=== PATIENT | male | born 1955 | race Caucasian/White ===

== ENCOUNTER 2018-12-27 20:02 | Inpatient (IN) | payer MEDICAID, OTHER ==
[~2018-12-27] VITALS: Ht 182.9 cm; Wt 77.1 kg
[~2018-12-27 20:02] MED LIST: ALBU0.63 NEB; ASPI325T17 PO; DIAZ2TAB PO; ESOM20CA PO; NAPR220T77 PO; OLAN10TA3 PO; OMEP20TA62 PO
--- NOTE | 2018-12-27 20:13 | NUR ---
PT TO ED WITH SALVATORE AFTER REFERRAL FROM [facility] FOR ABNORMAL LIVER PANEL. PT CANNOT REMEMBER WHEN PANEL WAS DRAWN. NEEDS MEDICAL CLEARANCE PRIOR TO RETURNING TO HALF-WAY. CONNECTED TO MONITOR. VSS. AWAITING EDMD ASSESSMETN.
[2018-12-27 20:50] LABS: BASOPHILS # (AUTO) 0.08 x10^3/uL (0-0.1); BASOPHILS % (AUTO) 1 % (0-1); EOSINOPHILS % (AUTO) 0 % (1-7); LYMPHOCYTES # (AUTO) 1.35 x10^3/uL (1-3.4); LYMPHOCYTES % (AUTO) 17 % (22-44); MD NO; MEAN CORPUSCULAR HEMOGLOBIN 34.5 pg (27.5-34.5); MEAN CORPUSCULAR HGB CONC 34.4 g/dL (33.2-36.2); MEAN CORPUSCULAR VOLUME 100.4 fL (81-97); MEAN PLATELET VOLUME 9.3 fL (7.4-10.4); MONOCYTES % (AUTO) 6 % (2-9); NEUTROPHILS # (AUTO) 6.02 x10^3/uL (1.8-6.8); NEUTROPHILS % (AUTO) 76 % (42-75); PLATELET COUNT 117 x10^3/uL (130-400); RED BLOOD COUNT 4.43 x10^6/uL (4.38-5.82); RED CELL DISTRIBUTION WIDTH 14.6 % (9.4-14.8)
[2018-12-27 21:01] LABS: ALANINE AMINOTRANSFERASE 160 U/L (12-78); ALBUMIN 4.2 g/dL (3.4-5.0); ANION GAP 13 mmol/L (5-15); CALCIUM 8.9 mg/dL (8.5-10.1); CHLORIDE 96 mmol/L (98-107); CREATININE 2.83 mg/dL (0.7-1.3)
[2018-12-27 21:03] LABS: ALKALINE PHOSPHATASE 126 U/L (45-117); BILIRUBIN,TOTAL 1.2 mg/dL (0.2-1.0)
--- NOTE | 2018-12-27 21:07 | NUR ---
PT RESTING IN ROOM WITH SALVATORE AT BEDSIDE. VSS. NO NEEDS AT THIS TIME.
[2018-12-27] MEDS ORDERED: SODIUM CHLORIDE 0.9% 1,000ML IVBOLUS ONE (21:30)
--- NOTE | 2018-12-27 21:38 | NUR ---
IV ESTABLISHED. WAITING FOR ROOM ASSIGNMENT. VSS. NO NEEDS AT THIS TIME. SALVATORE AT BEDSIDE.
[2018-12-27] MEDS ORDERED: NAPR220C2 PO (22:18)
[2018-12-27] MEDS ORDERED: IBUP-1623 PO (22:18)
[2018-12-27] MEDS ORDERED: ONDANSETRON 2MG/ML, 2ML IVPush PRN (23:00)
[2018-12-27] MEDS ORDERED: hydrALAzine 20 MG/ML, 1ML IVPush PRN (23:00)
[2018-12-27] MEDS: SODIUM CHLORIDE 0.9% 1,000 ML IV SCH (23:16)
[2018-12-28 00:06] VITALS: BP 150/64
[2018-12-28] MEDS: LEVETIRACETAM 500 MG in SODIUM CHLORIDE 0.9% 100 ML IV SCH ×2 (01:04→13:20)
[2018-12-28 01:08] VITALS: BP 120/85
[2018-12-28] MEDS: SODIUM CHLORIDE 0.9% 1,000 ML IV SCH ×2 (05:10→16:11)
[2018-12-28 05:29] LABS: BASOPHILS # (AUTO) 0.08 x10^3/uL (0-0.1); BASOPHILS % (AUTO) 1 % (0-1); EOSINOPHILS # (AUTO) 0.08 x10^3/uL (0-0.4); EOSINOPHILS % (AUTO) 1 % (1-7); LYMPHOCYTES % (AUTO) 25 % (22-44); MD NO; MEAN CORPUSCULAR HEMOGLOBIN 34.7 pg (27.5-34.5); MEAN CORPUSCULAR HGB CONC 34.6 g/dL (33.2-36.2); MEAN CORPUSCULAR VOLUME 100.3 fL (81-97); MEAN PLATELET VOLUME 8.9 fL (7.4-10.4); MONOCYTES # (AUTO) 0.73 x10^3/uL (0.2-0.8); MONOCYTES % (AUTO) 10 % (2-9); NEUTROPHILS # (AUTO) 4.74 x10^3/uL (1.8-6.8); NEUTROPHILS % (AUTO) 63 % (42-75); PLATELET COUNT 104 x10^3/uL (130-400); RED BLOOD COUNT 4.08 x10^6/uL (4.38-5.82); RED CELL DISTRIBUTION WIDTH 14.6 % (9.4-14.8)
[2018-12-28 05:43] LABS: CHLORIDE 99 mmol/L (98-107)
[2018-12-28 05:53] LABS: ALANINE AMINOTRANSFERASE 136 U/L (12-78); ALBUMIN 3.8 g/dL (3.4-5.0); ALKALINE PHOSPHATASE 114 U/L (45-117); ANION GAP 13 mmol/L (5-15); BILIRUBIN,TOTAL 1.4 mg/dL (0.2-1.0); CALCIUM 8.4 mg/dL (8.5-10.1); CREATININE 1.79 mg/dL (0.7-1.3); TOTAL PROTEIN 7.2 g/dL (6.4-8.2)
[2018-12-28 06:30] LABS: AMPHETAMINE SCREEN, URINE Negative (Negative); BARBITURATE SCREEN, URINE Negative (Negative); BENZODIAZEPINE SCREEN, URINE Negative (Negative); CANNABINOID SCREEN, URINE Negative (Negative); COCAINE SCREEN, URINE Negative (Negative); METHADONE SCREEN, URINE Negative (Negative); OPIATE SCREEN, URINE Negative (Negative)
[2018-12-28] MEDS: FAMOTIDINE 20 MG/2 ML IVPush SCH ×2 (07:34→22:40)
[2018-12-28 07:45] VITALS: BP 108/75
[2018-12-28] MEDS ORDERED: POTASSIUM CHLORIDE 40 MEQ in SODIUM CHLORIDE 0.9% 500 ML IV ONE (08:00)
[2018-12-28] MEDS: HEPARIN 5,000 UNITS/ML, 1ML SQ SCH ×2 (08:31→16:08)
[2018-12-28 08:54] LABS: ACETAMINOPHEN < 2 mcg/mL (10-30)
[2018-12-28 12:30] VITALS: BP 116/67
[2018-12-28] MEDS: POTASSIUM CHLORIDE 20 MEQ TAB.ER.PRT PO SCH (16:09)
[2018-12-28 20:11] VITALS: BP 112/62
[2018-12-29] MEDS: LEVETIRACETAM 500 MG in SODIUM CHLORIDE 0.9% 100 ML IV SCH (00:38)
[2018-12-29] MEDS: HEPARIN 5,000 UNITS/ML, 1ML SQ SCH ×3 (00:39→17:09)
[2018-12-29 01:45] VITALS: BP 116/67
[2018-12-29] MEDS: SODIUM CHLORIDE 0.9% 1,000 ML IV SCH ×3 (02:00→17:17)
[2018-12-29 05:51] LABS: CHLORIDE 109 mmol/L (98-107)
[2018-12-29 05:57] LABS: ALANINE AMINOTRANSFERASE 100 U/L (12-78); ALKALINE PHOSPHATASE 98 U/L (45-117); ANION GAP 5 mmol/L (5-15); BILIRUBIN,TOTAL 0.7 mg/dL (0.2-1.0); CALCIUM 8.4 mg/dL (8.5-10.1); CREATININE 0.74 mg/dL (0.7-1.3); TOTAL PROTEIN 5.7 g/dL (6.4-8.2)
[2018-12-29] MEDS: PANTOPRAZOLE 20MG TABLET PO SCH (06:35)
[2018-12-29 07:18] VITALS: BP 124/75
[2018-12-29] MEDS: POTASSIUM CHLORIDE 20 MEQ TAB.ER.PRT PO SCH ×2 (09:44→17:08)
[2018-12-29] MEDS: FAMOTIDINE 20 MG/2 ML IVPush SCH (09:45)
[2018-12-29 13:24] VITALS: BP 118/67
[2018-12-29 20:55] VITALS: BP 138/83
[2018-12-29] MEDS ORDERED: LORazepam 1MG TABLET PO ONE (21:30)
[2018-12-29] MEDS: FAMOTIDINE 20 MG TABLET PO SCH (22:02)
[2018-12-30 02:42] VITALS: BP 140/84
[2018-12-30 05:59] LABS: CHLORIDE 104 mmol/L (98-107)
[2018-12-30 06:17] LABS: ALANINE AMINOTRANSFERASE 115 U/L (12-78); ALBUMIN 3.2 g/dL (3.4-5.0); ALKALINE PHOSPHATASE 100 U/L (45-117); ANION GAP 5 mmol/L (5-15); BILIRUBIN,TOTAL 0.9 mg/dL (0.2-1.0); CALCIUM 9.2 mg/dL (8.5-10.1); CREATININE 0.65 mg/dL (0.7-1.3); TOTAL PROTEIN 6.3 g/dL (6.4-8.2)
[2018-12-30] MEDS: PANTOPRAZOLE 20MG TABLET PO SCH (07:05)
[2018-12-30] MEDS ORDERED: ONDA4TAB7 PO (08:32)
[2018-12-30] MEDS ORDERED: POTA20TA6 PO (08:32)
[2018-12-30] MEDS ORDERED: FAMO20TA7 PO (08:32)
[2018-12-30] MEDS: FAMOTIDINE 20 MG TABLET PO SCH (08:35)
[2018-12-30] MEDS: POTASSIUM CHLORIDE 20 MEQ TAB.ER.PRT PO SCH (08:35)
[2018-12-30] MEDS: HEPARIN 5,000 UNITS/ML, 1ML SQ SCH ×2 (08:35)
[2018-12-30 09:25] VITALS: BP 131/91
[2018-12-30 13:31] VITALS: BP 127/87
== END 2018-12-30 14:22 | disposition home or self-care (01) | DRG 684 ==
LOC: ED 20:15 → 4NOR 21:58 → ED 22:47
PROVIDERS: ADMIT Family Medicine; ATTEND Family Medicine
DX: N17.9 Acute kidney failure, unspecified (principal); D69.6 Thrombocytopenia, unspecified; E87.6 Hypokalemia; E86.0 Dehydration; K21.9 Gastro-esophageal reflux disease without esophagitis; F17.200 Nicotine dependence, unspecified, uncomplicated; K80.20 Calculus of gallbladder without cholecystitis without obstruction; N28.1 Cyst of kidney, acquired; R56.9 Unspecified convulsions; K76.9 Liver disease, unspecified; K76.0 Fatty (change of) liver, not elsewhere classified
CPT/HCPCS: 36415; 74018; 99291; J3490; 70450; 76700; 80053; 80074; 80307; 82140; 82436; 82570; 83690; 83735; 83970; 84133; 84300; 85025; G0378; J1644; J1953; J3480; J7030; J7040

== ENCOUNTER 2020-04-19 23:56 | Emergency (ER) | payer OTHER ==
[~2020-04-19] VITALS: Ht 2.5 cm; Wt 76.0 kg
[~2020-04-19 23:56] MED LIST changes: +FAMO20TA7 PO; +IBUP-1623 PO; +NAPR220C2 PO; +ONDA4TAB7 PO; +POTA20TA6 PO
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
--- NOTE | 2020-04-20 00:07 | NUR ---
SMALL LAC NOTED TO TOP OF HEAD, BLEEDING CONTROLLED. LOOKS TO BE HEALING WELL
[2020-04-20 00:40] LABS: BASOPHILS # (AUTO) 0.07 x10^3/uL (0-0.1); BASOPHILS % (AUTO) 2 % (0-1); EOSINOPHILS # (AUTO) 0.12 x10^3/uL (0-0.4); EOSINOPHILS % (AUTO) 4 % (1-7); LYMPHOCYTES # (AUTO) 1.26 x10^3/uL (1-3.4); LYMPHOCYTES % (AUTO) 38 % (22-44); MD NO; MEAN CORPUSCULAR HEMOGLOBIN 36.4 pg (27.5-34.5); MEAN CORPUSCULAR HGB CONC 33.6 g/dL (33.2-36.2); MEAN CORPUSCULAR VOLUME 108.2 fL (81-97); MEAN PLATELET VOLUME 7.7 fL (7.4-10.4); MONOCYTES # (AUTO) 0.33 x10^3/uL (0.2-0.8); MONOCYTES % (AUTO) 10 % (2-9); NEUTROPHILS # (AUTO) 1.56 x10^3/uL (1.8-6.8); NEUTROPHILS % (AUTO) 47 % (42-75); PLATELET COUNT 150 x10^3/uL (130-400); RED BLOOD COUNT 3.96 x10^6/uL (4.38-5.82); RED CELL DISTRIBUTION WIDTH 14.3 % (9.4-14.8)
[2020-04-20 00:49] LABS: ANION GAP 8 mmol/L (5-15); CALCIUM 8.6 mg/dL (8.5-10.1); CHLORIDE 108 mmol/L (98-107)
[2020-04-20 01:05] VITALS: BP 137/81
[2020-04-20] MEDS ORDERED: NEOSPORIN OINT. PKT 1 PACKET ONE (01:15)
--- NOTE | 2020-04-20 01:21 | NUR ---
LACERATION CLEANED WITH SOAP AND WATER, BACITRACIN AND STERI STRIPS APPLIED
--- NOTE | 2020-04-20 01:36 | NUR ---
Patient and [facility] given discharge instructions and they have confirmed that they understand the instructions. Patient ambulatory with steady gait escorted out by [employer] officers
== END 2020-04-20 01:39 | disposition home or self-care (01) ==
LOC: ED 04-20 00:52
DX: S01.01XA Laceration without foreign body of scalp, initial encounter (principal); S09.90XA Unspecified injury of head, initial encounter; F10.129 Alcohol abuse with intoxication, unspecified; Y90.0 Blood alcohol level of less than 20 mg/100 ml; W18.30XA Fall on same level, unspecified, initial encounter; Y93.89 Activity, other specified; Y92.410 Unspecified street and highway as the place of occurrence of the external cause; Y99.8 Other external cause status
CPT/HCPCS: 12031; 36415; 70450; 80048; 85025; 99284

== ENCOUNTER 2020-04-22 23:49 | Inpatient (IN) | payer MEDICAID, OTHER ==
[~2020-04-22] VITALS: Ht 185.4 cm; Wt 79.4 kg
[2020-04-23] MEDS ORDERED: PANTOPRAZOLE 80 MG in SODIUM CHLORIDE 0.9% 50 ML IVPB ONE (00:06)
[2020-04-23] MEDS: PANTOPRAZOLE 80 MG in SODIUM CHLORIDE 0.9% 100 ML IV SCH ×4 (00:23→18:37)
[2020-04-23 00:29] LABS: BASOPHILS # (AUTO) 0.09 x10^3/uL (0-0.1); BASOPHILS % (AUTO) 1 % (0-1); EOSINOPHILS # (AUTO) 0.04 x10^3/uL (0-0.4); EOSINOPHILS % (AUTO) 0 % (1-7); LYMPHOCYTES # (AUTO) 1.06 x10^3/uL (1-3.4); LYMPHOCYTES % (AUTO) 8 % (22-44); MD NO; MEAN CORPUSCULAR HEMOGLOBIN 36.9 pg (27.5-34.5); MEAN CORPUSCULAR HGB CONC 34.9 g/dL (33.2-36.2); MEAN CORPUSCULAR VOLUME 105.7 fL (81-97); MEAN PLATELET VOLUME 9.4 fL (7.4-10.4); MONOCYTES # (AUTO) 0.33 x10^3/uL (0.2-0.8); MONOCYTES % (AUTO) 3 % (2-9); NEUTROPHILS # (AUTO) 11.44 x10^3/uL (1.8-6.8); NEUTROPHILS % (AUTO) 88 % (42-75); PLATELET COUNT 132 x10^3/uL (130-400); RED BLOOD COUNT 3.64 x10^6/uL (4.38-5.82); RED CELL DISTRIBUTION WIDTH 13.6 % (9.4-14.8)
[2020-04-23 00:36] LABS: INTERNATIONAL NORMALIZED RATIO 1.07 (0.93-1.1)
[2020-04-23 00:39] LABS: ALANINE AMINOTRANSFERASE 110 U/L (12-78); ALBUMIN 3.6 g/dL (3.4-5.0); ANION GAP 19 mmol/L (5-15); CALCIUM 8.8 mg/dL (8.5-10.1); CHLORIDE 86 mmol/L (98-107); CREATININE 2.86 mg/dL (0.7-1.3)
[2020-04-23] MEDS ORDERED: LORazepam 2 MG/ML, 1ML ONE (00:40)
[2020-04-23 00:44] LABS: ALKALINE PHOSPHATASE 132 U/L (45-117); BILIRUBIN,TOTAL 1.8 mg/dL (0.2-1.0); TOTAL PROTEIN 7.4 g/dL (6.4-8.2)
--- NOTE | 2020-04-23 00:44 | NUR ---
PT ASSISTED TO BATHROOM, PT UNSTEADY ON FEET. WHEN PT RETURNED TO ROOM, HE BECAME AGGITATED. VERBAL ORDER FOR 1MG ATIVAN PER MD. PROTONIX STARTED AT THIS TIME.
[2020-04-23 00:45] LABS: TROPONIN I 0.193 ng/mL (0.000-0.045)
[2020-04-23] MEDS ORDERED: SODIUM CHLORIDE 0.9% 1,000ML IVBOLUS ONE ×2 (01:00→01:30)
[2020-04-23] MEDS ORDERED: LORazepam 2 MG/ML, 1ML IVPush ONE (01:00)
[2020-04-23] MEDS ORDERED: ONDANSETRON 2MG/ML, 2ML IVPush PRN (02:00)
[2020-04-23] MEDS ORDERED: MORPHINE SULFATE 4 MG/ML, 1ML IVPush PRN (02:00)
[2020-04-23] MEDS ORDERED: ONDANSETRON 2MG/ML, 2ML IV PRN (03:30)
[2020-04-23] MEDS: SODIUM CHLORIDE 0.9% 1,000 ML IV SCH ×2 (03:30→11:53)
[2020-04-23] MEDS ORDERED: POTASSIUM CHLORIDE 40 MEQ in SODIUM CHLORIDE 0.9% 500 ML IV ONE (03:30)
[2020-04-23] MEDS ORDERED: THIAMINE 200 MG in SODIUM CHLORIDE 0.9% 50 ML IV ONE (03:30)
[2020-04-23 03:35] VITALS: BP 111/75
[2020-04-23 05:06] LABS: CHOLESTEROL, TOTAL 189 mg/dL (140-239); TRIGLYCERIDES 140 mg/dL (50-200); VLDL CHOLESTEROL 28 mg/dL (0-25)
[2020-04-23 05:10] LABS: CHOL/HDL RATIO 2.2; HDL CHOL % 46 % (26-37); HDL CHOLESTEROL (DIRECT) 87 mg/dL (40-60); LDL CHOLESTEROL,CALCULATED 74 mg/dL (54-169); LDL/HDL RATIO 0.9 (0.5-3.0); TROPONIN I 0.157 ng/mL (0.000-0.045)
[2020-04-23] MEDS ORDERED: MAGNESIUM SULFATE 1 GM in SODIUM CHLORIDE 0.9% 50 ML IV ONE (06:30)
[2020-04-23 07:45] VITALS: BP 105/70
[2020-04-23] MEDS: THIAMINE 100MG TABLET PO SCH ×2 (09:00→22:44)
[2020-04-23] MEDS: LACTOBACILLUS CHEW TABLET PO SCH ×3 (09:00→22:44)
[2020-04-23] MEDS ORDERED: MAGNESIUM SULFATE PMX 2GM/50ML 50 ML IV ONE (09:00)
[2020-04-23 11:09] LABS: TROPONIN I 0.106 ng/mL (0.000-0.045)
[2020-04-23 12:48] VITALS: BP 126/83
[2020-04-23 18:13] VITALS: BP 127/81
[2020-04-23 22:31] VITALS: BP 94/63
[2020-04-24 00:05] LABS: MICROSCOPIC NOT IND
[2020-04-24] MEDS: PANTOPRAZOLE 80 MG in SODIUM CHLORIDE 0.9% 100 ML IV SCH ×3 (03:42→23:07)
[2020-04-24 05:22] LABS: % IRON SATURATION 29 % (20-55); ALANINE AMINOTRANSFERASE 64 U/L (12-78); ANION GAP 7 mmol/L (5-15); CALCIUM 8.1 mg/dL (8.5-10.1); CHLORIDE 107 mmol/L (98-107); CREATININE 0.77 mg/dL (0.7-1.3); IRON LEVEL 82 mcg/dL (65-175); TOTAL IRON BINDING CAPACITY 282 mcg/dL (250-450)
[2020-04-24 05:37] LABS: ALKALINE PHOSPHATASE 98 U/L (45-117); BILIRUBIN,TOTAL 1.1 mg/dL (0.2-1.0); CREATINE KINASE, TOTAL 1410 U/L (39-308); TOTAL PROTEIN 5.9 g/dL (6.4-8.2)
[2020-04-24] MEDS: SODIUM CHLORIDE 0.9% 1,000 ML IV SCH ×2 (05:53→18:11)
[2020-04-24 07:57] VITALS: BP 106/59
[2020-04-24] MEDS ORDERED: POTASSIUM CHLORIDE 20 MEQ TAB.ER.PRT PO ONE (08:30)
[2020-04-24] MEDS ORDERED: IRON SUCROSE COMPLEX 100MG/5ML IV SCH (09:00)
[2020-04-24] MEDS: LACTOBACILLUS CHEW TABLET PO SCH ×3 (09:38→21:23)
[2020-04-24] MEDS: THIAMINE 100MG TABLET PO SCH ×2 (09:38→21:22)
[2020-04-24 12:50] VITALS: BP 108/66
[2020-04-24 18:53] VITALS: BP 108/71
[2020-04-24] MEDS ORDERED: LORazepam 1MG TABLET PO ONE (21:00)
[2020-04-24 22:46] VITALS: BP 111/67
[2020-04-25] MEDS ORDERED: LORazepam 2 MG/ML, 1ML IVPush ONE (02:30)
[2020-04-25 05:44] LABS: ANION GAP 7 mmol/L (5-15); CHLORIDE 103 mmol/L (98-107)
[2020-04-25 05:50] LABS: ALANINE AMINOTRANSFERASE 70 U/L (12-78); ALKALINE PHOSPHATASE 104 U/L (45-117); BILIRUBIN,TOTAL 0.9 mg/dL (0.2-1.0); CREATININE 0.62 mg/dL (0.7-1.3); TOTAL PROTEIN 6.2 g/dL (6.4-8.2)
[2020-04-25 08:23] VITALS: BP 137/83
[2020-04-25] MEDS ORDERED: MAGNESIUM SULFATE PMX 2GM/50ML 50 ML IV ONE (08:30)
[2020-04-25] MEDS: LACTOBACILLUS CHEW TABLET PO SCH ×3 (08:55→20:33)
[2020-04-25] MEDS: THIAMINE 100MG TABLET PO SCH ×2 (08:55→20:34)
[2020-04-25] MEDS: SODIUM CHLORIDE 0.9% 1,000 ML IV SCH (08:55)
[2020-04-25] MEDS ORDERED: POTASSIUM CHLORIDE 20 MEQ TAB.ER.PRT PO ONE (09:00)
[2020-04-25] MEDS ORDERED: LORazepam 1MG TABLET PO PRN (09:30)
[2020-04-25] MEDS: PANTOPRAZOLE 80 MG in SODIUM CHLORIDE 0.9% 100 ML IV SCH ×2 (09:37→20:33)
[2020-04-25] MEDS ORDERED: LORazepam 2 MG/ML, 1ML ONE (11:29)
[2020-04-25] MEDS ORDERED: LORazepam 2 MG/ML, 1ML IVPush PRN (11:30)
[2020-04-25] MEDS ORDERED: HALOPERIDOL 5 MG/ML ONE (12:24)
[2020-04-25] MEDS ORDERED: HALOPERIDOL 5 MG/ML IM PRN ×2 (12:30→16:00)
[2020-04-25 12:50] LABS: OCCULT BLOOD POSITIVE (NEGATIVE)
[2020-04-25 14:17] VITALS: BP 153/91
[2020-04-25] MEDS: MELATONIN 5 MG TABLET PO SCH (20:33)
[2020-04-25 21:35] VITALS: BP 128/81
[2020-04-26 02:24] VITALS: BP 134/76
[2020-04-26 05:17] LABS: BASOPHILS # (AUTO) 0.03 x10^3/uL (0-0.1); BASOPHILS % (AUTO) 1 % (0-1); EOSINOPHILS # (AUTO) 0.13 x10^3/uL (0-0.4); EOSINOPHILS % (AUTO) 4 % (1-7); LYMPHOCYTES % (AUTO) 33 % (22-44); MD NO; MEAN CORPUSCULAR HEMOGLOBIN 36.8 pg (27.5-34.5); MEAN CORPUSCULAR HGB CONC 33.9 g/dL (33.2-36.2); MEAN CORPUSCULAR VOLUME 108.8 fL (81-97); MEAN PLATELET VOLUME 8.6 fL (7.4-10.4); MONOCYTES # (AUTO) 0.38 x10^3/uL (0.2-0.8); MONOCYTES % (AUTO) 10 % (2-9); NEUTROPHILS # (AUTO) 1.96 x10^3/uL (1.8-6.8); NEUTROPHILS % (AUTO) 53 % (42-75); PLATELET COUNT 133 x10^3/uL (130-400); RED BLOOD COUNT 2.46 x10^6/uL (4.38-5.82); RED CELL DISTRIBUTION WIDTH 13.6 % (9.4-14.8)
[2020-04-26 05:22] LABS: CHLORIDE 106 mmol/L (98-107)
[2020-04-26 05:28] LABS: ANION GAP 5 mmol/L (5-15); CALCIUM 8.1 mg/dL (8.5-10.1); CREATININE 0.63 mg/dL (0.7-1.3)
[2020-04-26] MEDS: PANTOPRAZOLE 80 MG in SODIUM CHLORIDE 0.9% 100 ML IV SCH (05:53)
[2020-04-26] MEDS: SODIUM CHLORIDE 0.9% 1,000 ML IV SCH (05:54)
[2020-04-26 06:55] VITALS: BP 128/86
[2020-04-26] MEDS ORDERED: MAGNESIUM SULFATE PMX 4GM/100M 100 ML IV ONE (08:30)
[2020-04-26] MEDS ORDERED: POTASSIUM CHLORIDE 20 MEQ TAB.ER.PRT PO ONE (08:30)
[2020-04-26] MEDS: NS + 40MEQ KCL 1,000 ML IV SCH (08:44)
[2020-04-26] MEDS ORDERED: CHLORHEXIDINE 15 ML UDC ONE (09:13)
[2020-04-26] MEDS ORDERED: CHLORHEXIDINE 15 ML UDC MM ONE (09:30)
[2020-04-26] MEDS ORDERED: PROMETHAZINE 25 MG/ML, 1ML IVPush PRN (10:00)
[2020-04-26] MEDS ORDERED: PROMETHAZINE 12.5 MG SUPP PR PRN (10:00)
[2020-04-26] MEDS ORDERED: MEPERIDINE/PF 25MG/0.5ML IVPush PRN (10:00)
[2020-04-26] MEDS ORDERED: ALBUTEROL SULFATE 2.5 MG/3 ML NPPB PRN (10:00)
[2020-04-26] MEDS ORDERED: FENTANYL PF 100 MCG/2ML IV PRN (10:00)
[2020-04-26] MEDS ORDERED: DIAZEPAM 5 MG/ML, 2ML IVPush PRN (10:00)
[2020-04-26] MEDS ORDERED: MIDAZOLAM 1 MG/ML, 2ML IV PRN (10:00)
[2020-04-26] MEDS ORDERED: HYDROmorphone 1 MG/ML, 1ML INJ IVPush PRN (10:00)
[2020-04-26] MEDS ORDERED: LABETALOL 5MG/ML, 20ML IV PRN (10:00)
[2020-04-26] MEDS ORDERED: EPHEDRINE 50 MG/ML, 1ML IVPush PRN (10:00)
[2020-04-26] MEDS ORDERED: ONDANSETRON 2MG/ML, 2ML IVPush PRN (10:00)
[2020-04-26] MEDS ORDERED: DIPHENHYDRAMINE 50 MG/ML, 1ML IVPush PRN (10:00)
[2020-04-26] MEDS ORDERED: OXYcodone 5 MG/5 ML ORAL.SOL UDC PO PRN (10:00)
[2020-04-26] MEDS ORDERED: hydrALAzine 20 MG/ML, 1ML IV PRN (10:00)
[2020-04-26] MEDS: SUCRALFATE 1 GM/10 ML UDC PO SCH ×3 (10:52→21:56)
[2020-04-26] MEDS: THIAMINE 100MG TABLET PO SCH ×2 (10:52→21:56)
[2020-04-26] MEDS: LACTOBACILLUS CHEW TABLET PO SCH ×3 (10:52→21:56)
[2020-04-26 14:29] VITALS: BP 119/80
[2020-04-26] MEDS ORDERED: PROPOFOL 10 MG/ML, 50ML ONE (15:59)
[2020-04-26] MEDS ORDERED: OMEPRAZOLE 20 MG CAPSULE.DR PO SCH (16:00)
[2020-04-26] MEDS: OMEPRAZOLE 20 MG CAPSULE.DR PO SCH (16:38)
[2020-04-26 19:23] VITALS: BP 112/64
[2020-04-26] MEDS: MELATONIN 5 MG TABLET PO SCH (21:56)
[2020-04-27] MEDS: NS + 40MEQ KCL 1,000 ML IV SCH (02:24)
[2020-04-27 02:42] VITALS: BP 134/75
[2020-04-27 07:13] VITALS: BP 138/82
[2020-04-27 07:49] LABS: ANION GAP 4 mmol/L (5-15); CALCIUM 9.2 mg/dL (8.5-10.1); CHLORIDE 104 mmol/L (98-107)
[2020-04-27 07:52] LABS: CREATINE KINASE, TOTAL 352 U/L (39-308); CREATININE 0.57 mg/dL (0.7-1.3)
[2020-04-27] MEDS: OMEPRAZOLE 20 MG CAPSULE.DR PO SCH ×2 (08:55→16:21)
[2020-04-27] MEDS: BISACODYL 10 MG SUPP PR SCH ×2 (08:55→10:25)
[2020-04-27] MEDS: THIAMINE 100MG TABLET PO SCH ×2 (08:56→20:51)
[2020-04-27] MEDS: LACTOBACILLUS CHEW TABLET PO SCH ×3 (08:56→20:52)
[2020-04-27] MEDS: SUCRALFATE 1 GM/10 ML UDC PO SCH ×4 (08:56→20:51)
[2020-04-27] MEDS ORDERED: SODIUM CHLORIDE 0.9% 1,000 ML IV SCH (09:00)
[2020-04-27] MEDS ORDERED: SENNA/DOCUSATE TABLET ONE (11:07)
[2020-04-27] MEDS: SENNA/DOCUSATE TABLET PO SCH (11:09)
[2020-04-27 12:37] VITALS: BP 128/71
[2020-04-27 19:18] VITALS: BP 118/73
[2020-04-27] MEDS: MELATONIN 5 MG TABLET PO SCH (20:52)
[2020-04-28 01:30] VITALS: BP 117/79
[2020-04-28] MEDS: OMEPRAZOLE 20 MG CAPSULE.DR PO SCH ×2 (06:07→16:04)
[2020-04-28] MEDS: SUCRALFATE 1 GM/10 ML UDC PO SCH ×3 (06:07→16:04)
[2020-04-28 07:22] VITALS: BP 123/80
[2020-04-28 07:25] LABS: BASOPHILS # (AUTO) 0.04 x10^3/uL (0-0.1); BASOPHILS % (AUTO) 1 % (0-1); EOSINOPHILS # (AUTO) 0.18 x10^3/uL (0-0.4); EOSINOPHILS % (AUTO) 4 % (1-7); LYMPHOCYTES # (AUTO) 1.81 x10^3/uL (1-3.4); LYMPHOCYTES % (AUTO) 40 % (22-44); MD NO; MEAN CORPUSCULAR HEMOGLOBIN 36.6 pg (27.5-34.5); MEAN CORPUSCULAR HGB CONC 33.6 g/dL (33.2-36.2); MEAN CORPUSCULAR VOLUME 109.1 fL (81-97); MEAN PLATELET VOLUME 8.2 fL (7.4-10.4); MONOCYTES # (AUTO) 0.68 x10^3/uL (0.2-0.8); MONOCYTES % (AUTO) 15 % (2-9); NEUTROPHILS # (AUTO) 1.87 x10^3/uL (1.8-6.8); NEUTROPHILS % (AUTO) 41 % (42-75); PLATELET COUNT 244 x10^3/uL (130-400); RED BLOOD COUNT 2.57 x10^6/uL (4.38-5.82); RED CELL DISTRIBUTION WIDTH 14.2 % (9.4-14.8)
[2020-04-28 07:35] LABS: ANION GAP 5 mmol/L (5-15); CALCIUM 9.3 mg/dL (8.5-10.1); CHLORIDE 106 mmol/L (98-107); CREATININE 0.57 mg/dL (0.7-1.3)
[2020-04-28] MEDS: LACTOBACILLUS CHEW TABLET PO SCH ×2 (09:11→16:04)
[2020-04-28] MEDS: THIAMINE 100MG TABLET PO SCH (09:12)
[2020-04-28] MEDS: SENNA/DOCUSATE TABLET PO SCH (11:22)
[2020-04-28 12:16] VITALS: BP 131/82
[2020-04-28] MEDS ORDERED: RISPERIDONE 0.5 MG TABLET PO SCH (18:00)
== END 2020-04-28 20:33 | disposition left against medical advice (07) | DRG 380 ==
LOC: ED 04-23 02:15 → EDIP 04-23 03:51 → 5SO 04-23 03:57 → 4EST 04-28 01:20
PROVIDERS: ADMIT Family Medicine; ATTEND Internal Medicine
PROC: 0DJ08ZZ Inspection of Upper Intestinal Tract, Via Natural or Artificial Opening Endoscopic (ICD-10-PCS; principal; 2020-04-26 09:30)
DX: K22.11 Ulcer of esophagus with bleeding (principal); I21.A1 Myocardial infarction type 2; N17.9 Acute kidney failure, unspecified; D62 Acute posthemorrhagic anemia; E51.2 Wernicke's encephalopathy; E87.1 Hypo-osmolality and hyponatremia; M62.82 Rhabdomyolysis; D53.9 Nutritional anemia, unspecified; D72.829 Elevated white blood cell count, unspecified; E83.42 Hypomagnesemia; E86.1 Hypovolemia; E87.6 Hypokalemia; F03.90 Unspecified dementia, unspecified severity, without behavioral disturbance, psychotic disturbance, mood disturbance, and anxiety; F10.20 Alcohol dependence, uncomplicated; F17.200 Nicotine dependence, unspecified, uncomplicated; G31.2 Degeneration of nervous system due to alcohol; K12.1 Other forms of stomatitis; K44.9 Diaphragmatic hernia without obstruction or gangrene; K59.00 Constipation, unspecified; K70.10 Alcoholic hepatitis without ascites; K80.20 Calculus of gallbladder without cholecystitis without obstruction; Z79.82 Long term (current) use of aspirin; Z91.19 Patient's noncompliance with other medical treatment and regimen; Z79.899 Other long term (current) drug therapy; Z20.828 Contact with and (suspected) exposure to other viral communicable diseases
CPT/HCPCS: 36415; 71045; 76700; 80048; 80053; 80061; 80074; 81003; 82140; 82272; 82550; 83540; 83550; 83690; 83735; 84132; 84443; 84484; 85014; 85018; 85025; 85610; 86850; 86900; 87635; 93005; 99291; G0378; J1756; J2704; J3411; J3475; J3480; C9113; J1630; J2060; J7030; J7040

== ENCOUNTER 2020-10-14 00:01 | Inpatient (IN) | payer OTHER ==
[~2020-10-14] VITALS: Ht 185.4 cm; Wt 81.6 kg
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
[2020-10-14] MEDS ORDERED: ONDANSETRON 2MG/ML, 2ML IVPush ONE (00:30)
[2020-10-14] MEDS ORDERED: SODIUM CHLORIDE 0.9% 1,000ML IVBOLUS ONE ×2 (00:30→02:00)
[2020-10-14] MEDS ORDERED: MORPHINE SULFATE 4 MG/ML, 1ML IVPush PRN (00:30)
[2020-10-14] MEDS ORDERED: MAGNESIUM SULFATE 1 GM, THIAMINE 100 MG, FOLIC ACID 1 MG, MVI ADULT 10 ML in SODIUM CHL... IV ONE (00:30)
[2020-10-14] MEDS ORDERED: LORazepam 2 MG/ML, 1ML IVPush ONE ×2 (00:30→02:30)
[2020-10-14] MEDS ORDERED: SODIUM CHLORIDE FLUSH 10ML SYR IVF ONE (00:30)
[2020-10-14] MEDS ORDERED: LORazepam 2 MG/ML, 1ML ONE ×2 (00:48→02:14)
[2020-10-14] MEDS ORDERED: ONDANSETRON 2MG/ML, 2ML ONE (00:48)
[2020-10-14 00:52] LABS: MEAN PLATELET VOLUME 9.6 fL (7.4-10.4); PLATELET COUNT 225 x10^3/uL (130-400); RED CELL DISTRIBUTION WIDTH 16.5 % (9.4-14.8)
[2020-10-14 00:58] LABS: ALBUMIN 4.1 g/dL (3.4-5.0); ANION GAP 28 mmol/L (5-15); CHLORIDE 65 mmol/L (98-107)
[2020-10-14 01:02] LABS: ALANINE AMINOTRANSFERASE 85 U/L (12-78); ALKALINE PHOSPHATASE 157 U/L (45-117); BILIRUBIN,TOTAL 2.2 mg/dL (0.2-1.0); CREATININE 3.72 mg/dL (0.7-1.3); TOTAL PROTEIN 9.2 g/dL (6.4-8.2)
--- NOTE | 2020-10-14 01:17 | NUR ---
PT TO CT
[2020-10-14 01:25] LABS: SALICYLATE LEVEL < 1.7 mg/dL (2.8-20.0)
[2020-10-14 01:26] LABS: INTERNATIONAL NORMALIZED RATIO 1.04 (0.93-1.1); PROTHROMBIN TIME 11.1 Seconds (9.6-11.5)
[2020-10-14 01:28] LABS: CALCIUM 15.7 mg/dL (8.5-10.1)
[2020-10-14 01:30] LABS: MD YES
[2020-10-14 01:31] LABS: <PLATELET ESTIMATE> ADEQUATE; ANISOCYTOSIS 1+; BAND#(MANUAL) 0.94 x10^3/uL; BANDS%(MANUAL) 9 % (0-7); LARGE PLATELETS 1+; LYMPH#(MANUAL) 1.35 x10^3/uL (1-3.4); LYMPHS% (MANUAL) 13 % (22-44); METAMYELOCYTES# (MANUAL) 0.31 x10^3/uL (0-0); METAMYELOCYTES% (MANUAL) 3 % (0-1); MONOS#(MANUAL) 0.42 x10^3/uL (0.3-2.7); MONOS% (MANUAL) 4 % (2-9); PMNS WITH VACUOLES 1+; POLYCHROMASIA 1+; SEG#(MANUAL) 7.38 x10^3/uL (1.8-6.8); SEGS% (MANUAL) 71 % (42-75)
--- NOTE | 2020-10-14 01:35 | NUR ---
BREAK RN: PT BACK FROM CT. PT PLACED ON MONITOR AND PIV COBANED TO PROTECT PIV. PT RESTING WITH NO NEEDS AT THIS TIME.
[2020-10-14] MEDS ORDERED: NS + 20MEQ KCL 1,000 ML IV SCH (02:00)
[2020-10-14] MEDS ORDERED: SODIUM CHLORIDE 0.9% 1,000 ML IV ONE (02:00)
[2020-10-14] MEDS ORDERED: LORazepam 2 MG/ML, 1ML IV PRN ×2 (02:00)
[2020-10-14] MEDS ORDERED: DOCUSATE 100 MG CAPSULE PO PRN (02:00)
[2020-10-14] MEDS ORDERED: POTASSIUM CHLORIDE 40 MEQ in SODIUM CHLORIDE 0.9% 500 ML IV ONE (02:30)
[2020-10-14] MEDS ORDERED: CEFTRIAXONE PMX 1GM/50ML 50 ML IV ONE (02:30)
--- NOTE | 2020-10-14 02:30 | NUR ---
PT SITTING UPRIGHT ON ANASTACIA WATT, VSSergey. PT DENIES ANY NEEDS AT THIS TIME. CALL LIGHT IN REACH. WILL CONTINUE TO MONITOR CLOSELY. CALLED AND STATES PT HAD FALLEN IN THE BATHROOM AND BEEN DOWN FOR AN UNKNOWN AMOUNT OF TIME. STATES "HE DRINKS TOO MUCH AND FALLS ALL THE TIME. HE DRINKS A BIG BOTTLE OF JOSE L EVERYDAY AND A FEW BEERS, IT IS A PROBLEM."
[2020-10-14 03:09] LABS: CALCIUM 15.7 mg/dL (8.5-10.1)
[2020-10-14] MEDS ORDERED: CEFTRIAXONE PMX 1GM/50ML 50 ML ONE (03:14)
[2020-10-14 03:23] LABS: AMPHETAMINE SCREEN, URINE Negative (Negative); BARBITURATE SCREEN, URINE Negative (Negative); BENZODIAZEPINE SCREEN, URINE Negative (Negative); CANNABINOID SCREEN, URINE Negative (Negative); COCAINE SCREEN, URINE Negative (Negative); METHADONE SCREEN, URINE Negative (Negative); OPIATE SCREEN, URINE Negative (Negative)
[2020-10-14 03:35] LABS: MICROSCOPIC INDICATED
--- NOTE | 2020-10-14 03:40 | NUR ---
PT PIV IN LEFT AC INFILTRATED, ERP AWARE. DISCUSSION OF CENTRAL LINE VS ADDITION PIV PLACEMENT, INCLUDING LOWER EXTREMITIES. ERP OK WITH ADDITIONAL PIV PLACEMENT IN LOWER EXTREMITIES. 2 PIV PLACED PER PROTOCOL, LEFT LEG AND RIGHT FOOT, PT TOLERATED WELL.
--- NOTE | 2020-10-14 03:45 | NUR ---
PT NOTED TO HAVE HAD BOWEL MOVEMENT, MELENA NOTED. PT CLEANED AND LINEN CHANGE PROVIDED. PT TOLERATED WELL. NO ADDITIONAL NEEDS AT THIS TIME. PT SITTING UPRIGHT ON ANASTACIA WATT VSS.
[2020-10-14] MEDS ORDERED: PANTOPRAZOLE 80 MG in SODIUM CHLORIDE 0.9% 100 ML IV SCH (04:00)
[2020-10-14] MEDS ORDERED: PANTOPRAZOLE 40 MG IV IVPush ONE (04:00)
--- NOTE | 2020-10-14 04:15 | NUR ---
Pt to be admitted to TELE 2, room 427-2. Report called to JOVON.
[2020-10-14 05:05] VITALS: BP 110/73
[2020-10-14 06:12] VITALS: BP 110/73
[2020-10-14 07:35] VITALS: BP 105/74
[2020-10-14 09:26] LABS: MEAN CORPUSCULAR HEMOGLOBIN 34.7 pg (27.5-34.5); MEAN PLATELET VOLUME 9.9 fL (7.4-10.4); PLATELET COUNT 149 x10^3/uL (130-400); RED BLOOD COUNT 4.23 x10^6/uL (4.38-5.82)
[2020-10-14 09:37] LABS: ALANINE AMINOTRANSFERASE 111 U/L (12-78); ALBUMIN 3.1 g/dL (3.4-5.0); ANION GAP 10 mmol/L (5-15); CALCIUM 12.6 mg/dL (8.5-10.1); CHLORIDE 83 mmol/L (98-107); CREATININE 2.32 mg/dL (0.7-1.3)
[2020-10-14 09:51] LABS: ALKALINE PHOSPHATASE 106 U/L (45-117); BILIRUBIN,TOTAL 1.2 mg/dL (0.2-1.0); CREATINE KINASE, TOTAL 2852 U/L (39-308); TOTAL PROTEIN 6.9 g/dL (6.4-8.2)
[2020-10-14 09:54] LABS: MD YES
[2020-10-14 09:58] LABS: BAND#(MANUAL) 1.65 x10^3/uL; BANDS%(MANUAL) 27 % (0-7); LYMPH#(MANUAL) 0.79 x10^3/uL (1-3.4); LYMPHS% (MANUAL) 13 % (22-44); METAMYELOCYTES# (MANUAL) 0.31 x10^3/uL (0-0); METAMYELOCYTES% (MANUAL) 5 % (0-1); MONOS#(MANUAL) 0.37 x10^3/uL (0.3-2.7); MONOS% (MANUAL) 6 % (2-9); SEG#(MANUAL) 2.99 x10^3/uL (1.8-6.8); SEGS% (MANUAL) 49 % (42-75)
[2020-10-14 09:59] LABS: ANISOCYTOSIS 1+; POLYCHROMASIA 1+
[2020-10-14 10:00] LABS: <PLATELET ESTIMATE> ADEQUATE; LARGE PLATELETS 1+
[2020-10-14 10:01] LABS: PMNS WITH VACUOLES 1+
[2020-10-14] MEDS ORDERED: PHARMACY MAY ADJ FOR RENAL FX MC PRN (10:30)
[2020-10-14] MEDS: CALCITONIN NASAL 200 UNITS/0.09ML, 3.7ML NAS SCH (10:31)
[2020-10-14] MEDS: PIPERACILLIN/TAZO/PMX 2.25GM 50 ML IV SCH ×3 (12:08→22:56)
[2020-10-14 12:46] VITALS: BP 105/71
[2020-10-14] MEDS: POTASSIUM CHLORIDE 40 MEQ in SODIUM CHLORIDE 0.9% 1,000 ML IV SCH ×2 (13:14→20:18)
[2020-10-14 14:49] LABS: ANION GAP 5 mmol/L (5-15); CALCIUM 12.2 mg/dL (8.5-10.1); CHLORIDE 86 mmol/L (98-107)
[2020-10-14 14:50] LABS: CREATININE 2.09 mg/dL (0.7-1.3)
[2020-10-14] MEDS: ESOMEPRAZOLE 40 MG IV IVPush SCH (16:32)
[2020-10-14 18:52] VITALS: BP 110/75
[2020-10-15 02:14] VITALS: BP 111/72
[2020-10-15 04:06] LABS: BASOPHILS % (AUTO) 1 % (0-1); EOSINOPHILS % (AUTO) 0 % (1-7); LYMPHOCYTES % (AUTO) 15 % (22-44); MEAN CORPUSCULAR HEMOGLOBIN 34.5 pg (27.5-34.5); MEAN CORPUSCULAR HGB CONC 34.2 g/dL (33.2-36.2); MEAN PLATELET VOLUME 9.6 fL (7.4-10.4); MONOCYTES % (AUTO) 5 % (2-9); NEUTROPHILS % (AUTO) 80 % (42-75); PLATELET COUNT 122 x10^3/uL (130-400); RED BLOOD COUNT 3.35 x10^6/uL (4.38-5.82); RED CELL DISTRIBUTION WIDTH 16.2 % (9.4-14.8)
[2020-10-15 04:10] LABS: ANION GAP 4 mmol/L (5-15); CHLORIDE 96 mmol/L (98-107); CREATININE 1.59 mg/dL (0.7-1.3)
[2020-10-15 04:11] LABS: ALANINE AMINOTRANSFERASE 127 U/L (12-78); ALBUMIN 2.6 g/dL (3.4-5.0)
[2020-10-15 04:13] LABS: ALKALINE PHOSPHATASE 72 U/L (45-117); BILIRUBIN,TOTAL 0.9 mg/dL (0.2-1.0); CREATINE KINASE, TOTAL 744 U/L (39-308)
[2020-10-15 04:28] LABS: MD NO
[2020-10-15] MEDS: ESOMEPRAZOLE 40 MG IV IVPush SCH ×2 (05:00→16:00)
[2020-10-15] MEDS: POTASSIUM CHLORIDE 40 MEQ in SODIUM CHLORIDE 0.9% 1,000 ML IV SCH ×2 (05:00→12:35)
[2020-10-15] MEDS: PIPERACILLIN/TAZO/PMX 2.25GM 50 ML IV SCH ×3 (05:00→16:00)
[2020-10-15 05:37] LABS: CHLORIDE,URINE RANDOM 17 mmol/L; POTASSIUM,URINE RANDOM 62 mmol/L; SODIUM,URINE RANDOM 19 mmol/L
[2020-10-15 06:47] VITALS: BP 123/79
[2020-10-15] MEDS ORDERED: POTASSIUM CHLORIDE 20 MEQ, MAGNESIUM SULFATE 1 GM, FOLIC ACID 1 MG, THIAMINE 200 MG, MV... IV SCH (09:00)
[2020-10-15] MEDS: CALCITONIN NASAL 200 UNITS/0.09ML, 3.7ML NAS SCH (09:27)
[2020-10-15] MEDS: POTASSIUM CHLORIDE 20 MEQ, MAGNESIUM SULFATE 1 GM, FOLIC ACID 1 MG, THIAMINE 200 MG, MV... IV SCH (09:45)
[2020-10-15] MEDS: LORazepam 2 MG/ML, 1ML IV PRN ×3 (10:46→23:09)
[2020-10-15 12:15] VITALS: BP 133/77
[2020-10-15 18:30] VITALS: BP 129/74
[2020-10-15] MEDS ORDERED: LEVETIRACETAM 500 MG TABLET PO SCH (21:00)
[2020-10-16] MEDS: PIPERACILLIN/TAZO/PMX 2.25GM 50 ML IV SCH ×3 (00:01→10:49)
[2020-10-16 00:04] VITALS: BP 133/86
[2020-10-16] MEDS: LORazepam 2 MG/ML, 1ML IV PRN ×5 (01:57→16:40)
[2020-10-16] MEDS: ESOMEPRAZOLE 40 MG IV IVPush SCH ×2 (04:40→16:39)
[2020-10-16 06:26] LABS: BASOPHILS % (AUTO) 1 % (0-1); EOSINOPHILS % (AUTO) 1 % (1-7); LYMPHOCYTES % (AUTO) 16 % (22-44); MEAN CORPUSCULAR HEMOGLOBIN 35.3 pg (27.5-34.5); MEAN CORPUSCULAR HGB CONC 35.2 g/dL (33.2-36.2); MEAN PLATELET VOLUME 9.4 fL (7.4-10.4); MONOCYTES % (AUTO) 12 % (2-9); NEUTROPHILS % (AUTO) 71 % (42-75); PLATELET COUNT 119 x10^3/uL (130-400); RED BLOOD COUNT 3.09 x10^6/uL (4.38-5.82); RED CELL DISTRIBUTION WIDTH 15.7 % (9.4-14.8)
[2020-10-16 06:27] LABS: MD NO
[2020-10-16 06:32] LABS: CHLORIDE 99 mmol/L (98-107)
[2020-10-16 06:40] LABS: ALANINE AMINOTRANSFERASE 125 U/L (12-78); ALBUMIN 2.6 g/dL (3.4-5.0); ALKALINE PHOSPHATASE 76 U/L (45-117); ANION GAP 8 mmol/L (5-15); BILIRUBIN,TOTAL 1.1 mg/dL (0.2-1.0); CALCIUM 10.2 mg/dL (8.5-10.1); CREATINE KINASE, TOTAL 322 U/L (39-308); CREATININE 0.79 mg/dL (0.7-1.3); TOTAL PROTEIN 6.3 g/dL (6.4-8.2)
[2020-10-16 07:04] VITALS: BP 153/90
[2020-10-16] MEDS ORDERED: POTASSIUM CHLORIDE 20 MEQ TAB.ER.PRT PO SCH (09:00)
[2020-10-16] MEDS: CALCITONIN NASAL 200 UNITS/0.09ML, 3.7ML NAS SCH (09:26)
[2020-10-16] MEDS: POTASSIUM CHLORIDE 20 MEQ, MAGNESIUM SULFATE 1 GM, FOLIC ACID 1 MG, THIAMINE 200 MG, MV... IV SCH (09:57)
[2020-10-16] MEDS ORDERED: POTASSIUM CHLORIDE 40 MEQ in SODIUM CHLORIDE 0.9% 500 ML IV ONE (11:00)
[2020-10-16] MEDS: LEVETIRACETAM 500 MG in SODIUM CHLORIDE 0.9% 100 ML IV SCH ×2 (11:45→23:04)
[2020-10-16 12:02] VITALS: BP_SYST 115; BP_SYST 147; BP_DIAS 75; BP_DIAS 88
[2020-10-16] MEDS: CIPROFLOXACIN OPHTH SOLN 0.3%, 5ML RIGHTEYE SCH ×2 (18:12→19:52)
[2020-10-16] MEDS: PIPERACILLIN/TAZO/PMX 3.375GM 50 ML IV SCH (18:15)
[2020-10-16] MEDS: POTASSIUM CHLORIDE 40 MEQ in SODIUM CHLORIDE 0.9% 1,000 ML IV SCH ×2 (19:44→19:53)
[2020-10-16 21:07] VITALS: BP 146/96
[2020-10-17] MEDS: PIPERACILLIN/TAZO/PMX 3.375GM 50 ML IV SCH ×4 (00:17→17:04)
[2020-10-17] MEDS: CIPROFLOXACIN OPHTH SOLN 0.3%, 5ML RIGHTEYE SCH ×6 (00:22→22:01)
[2020-10-17 02:37] VITALS: BP 159/90
[2020-10-17] MEDS: ESOMEPRAZOLE 40 MG IV IVPush SCH ×2 (04:30→17:06)
[2020-10-17 06:10] LABS: BASOPHILS % (AUTO) 0 % (0-1); EOSINOPHILS % (AUTO) 2 % (1-7); LYMPHOCYTES % (AUTO) 16 % (22-44); MEAN CORPUSCULAR HEMOGLOBIN 35.3 pg (27.5-34.5); MEAN CORPUSCULAR HGB CONC 35.7 g/dL (33.2-36.2); MEAN PLATELET VOLUME 8.6 fL (7.4-10.4); MONOCYTES % (AUTO) 20 % (2-9); NEUTROPHILS % (AUTO) 63 % (42-75); PLATELET COUNT 140 x10^3/uL (130-400); RED BLOOD COUNT 3.48 x10^6/uL (4.38-5.82)
[2020-10-17 06:18] LABS: CALCIUM 9.7 mg/dL (8.5-10.1); CHLORIDE 101 mmol/L (98-107)
[2020-10-17 06:24] LABS: ALANINE AMINOTRANSFERASE 92 U/L (12-78); ALBUMIN 2.5 g/dL (3.4-5.0); ALKALINE PHOSPHATASE 99 U/L (45-117); ANION GAP 12 mmol/L (5-15); BILIRUBIN,TOTAL 1.1 mg/dL (0.2-1.0); TOTAL PROTEIN 6.8 g/dL (6.4-8.2)
[2020-10-17 06:43] VITALS: BP 155/93
[2020-10-17 06:45] LABS: MD SCAN
[2020-10-17] MEDS: CALCITONIN NASAL 200 UNITS/0.09ML, 3.7ML NAS SCH (08:32)
[2020-10-17] MEDS: LORazepam 2 MG/ML, 1ML IV PRN (09:03)
[2020-10-17] MEDS: POTASSIUM CHLORIDE 40 MEQ in SODIUM CHLORIDE 0.9% 1,000 ML IV SCH ×2 (09:08→22:01)
[2020-10-17] MEDS: LEVETIRACETAM 500 MG in SODIUM CHLORIDE 0.9% 100 ML IV SCH ×2 (11:11→23:33)
[2020-10-17 12:24] VITALS: BP 132/70
[2020-10-17 19:37] VITALS: BP 149/90
[2020-10-18] MEDS: PIPERACILLIN/TAZO/PMX 3.375GM 50 ML IV SCH ×4 (00:26→21:27)
[2020-10-18] MEDS: CIPROFLOXACIN OPHTH SOLN 0.3%, 5ML RIGHTEYE SCH ×7 (00:26→23:40)
[2020-10-18 01:46] VITALS: BP 156/94
[2020-10-18] MEDS: ESOMEPRAZOLE 40 MG IV IVPush SCH ×2 (05:44→16:54)
[2020-10-18 06:43] LABS: BASOPHILS % (AUTO) 1 % (0-1); EOSINOPHILS % (AUTO) 2 % (1-7); LYMPHOCYTES % (AUTO) 17 % (22-44); MEAN CORPUSCULAR HEMOGLOBIN 34.8 pg (27.5-34.5); MEAN CORPUSCULAR HGB CONC 34.9 g/dL (33.2-36.2); MEAN PLATELET VOLUME 8.5 fL (7.4-10.4); MONOCYTES % (AUTO) 22 % (2-9); NEUTROPHILS % (AUTO) 58 % (42-75); PLATELET COUNT 186 x10^3/uL (130-400); RED BLOOD COUNT 3.29 x10^6/uL (4.38-5.82); RED CELL DISTRIBUTION WIDTH 16.2 % (9.4-14.8)
[2020-10-18 06:45] VITALS: BP 149/89
[2020-10-18 06:45] LABS: ANION GAP 8 mmol/L (5-15); CALCIUM 9.2 mg/dL (8.5-10.1); CHLORIDE 109 mmol/L (98-107); CREATININE 0.62 mg/dL (0.7-1.3)
[2020-10-18 06:49] LABS: MD NO
[2020-10-18] MEDS: CALCITONIN NASAL 200 UNITS/0.09ML, 3.7ML NAS SCH (09:40)
[2020-10-18] MEDS: LEVETIRACETAM 500 MG in SODIUM CHLORIDE 0.9% 100 ML IV SCH ×2 (11:34→23:40)
[2020-10-18] MEDS: POTASSIUM CHLORIDE 40 MEQ in SODIUM CHLORIDE 0.9% 1,000 ML IV SCH (13:05)
[2020-10-18 13:39] VITALS: BP 155/86
[2020-10-18 18:42] VITALS: BP 152/89
[2020-10-19 00:18] VITALS: BP 147/85
[2020-10-19] MEDS: POTASSIUM CHLORIDE 40 MEQ in SODIUM CHLORIDE 0.9% 1,000 ML IV SCH ×2 (00:52→09:49)
[2020-10-19] MEDS: LORazepam 2 MG/ML, 1ML IV PRN (01:28)
[2020-10-19] MEDS: PIPERACILLIN/TAZO/PMX 3.375GM 50 ML IV SCH ×4 (03:37→23:29)
[2020-10-19] MEDS: CIPROFLOXACIN OPHTH SOLN 0.3%, 5ML RIGHTEYE SCH ×5 (05:11→23:29)
[2020-10-19] MEDS: ESOMEPRAZOLE 40 MG IV IVPush SCH ×2 (05:11→16:55)
[2020-10-19 06:16] LABS: BASOPHILS % (AUTO) 1 % (0-1); EOSINOPHILS % (AUTO) 2 % (1-7); LYMPHOCYTES % (AUTO) 19 % (22-44); MEAN CORPUSCULAR HEMOGLOBIN 34.5 pg (27.5-34.5); MEAN CORPUSCULAR HGB CONC 34.9 g/dL (33.2-36.2); MEAN PLATELET VOLUME 8.3 fL (7.4-10.4); MONOCYTES % (AUTO) 17 % (2-9); NEUTROPHILS % (AUTO) 61 % (42-75); PLATELET COUNT 246 x10^3/uL (130-400); RED BLOOD COUNT 3.47 x10^6/uL (4.38-5.82); RED CELL DISTRIBUTION WIDTH 16.1 % (9.4-14.8)
[2020-10-19 06:20] LABS: MD NO
[2020-10-19 06:27] LABS: ALBUMIN 2.4 g/dL (3.4-5.0); ANION GAP 13 mmol/L (5-15); CHLORIDE 110 mmol/L (98-107)
[2020-10-19 06:54] LABS: ALANINE AMINOTRANSFERASE 59 U/L (12-78); ALKALINE PHOSPHATASE 108 U/L (45-117); BILIRUBIN,TOTAL 0.8 mg/dL (0.2-1.0); CREATINE KINASE, TOTAL 127 U/L (39-308); CREATININE 0.63 mg/dL (0.7-1.3); TOTAL PROTEIN 7.1 g/dL (6.4-8.2)
[2020-10-19 08:20] VITALS: BP 155/83
[2020-10-19] MEDS: CALCITONIN NASAL 200 UNITS/0.09ML, 3.7ML NAS SCH (09:49)
[2020-10-19] MEDS: LEVETIRACETAM 500 MG in SODIUM CHLORIDE 0.9% 100 ML IV SCH (11:42)
[2020-10-19 12:28] VITALS: BP 162/89
[2020-10-19 18:29] VITALS: BP 170/88
[2020-10-19 18:47] VITALS: BP 97/58
[2020-10-20] MEDS: LEVETIRACETAM 500 MG in SODIUM CHLORIDE 0.9% 100 ML IV SCH ×2 (00:12→12:18)
[2020-10-20] MEDS: CIPROFLOXACIN OPHTH SOLN 0.3%, 5ML RIGHTEYE SCH ×6 (00:12→21:28)
[2020-10-20 00:54] VITALS: BP 163/89
[2020-10-20] MEDS: POTASSIUM CHLORIDE 40 MEQ in SODIUM CHLORIDE 0.9% 1,000 ML IV SCH ×2 (01:20→14:16)
[2020-10-20] MEDS: ESOMEPRAZOLE 40 MG IV IVPush SCH ×2 (04:58→17:24)
[2020-10-20] MEDS: PIPERACILLIN/TAZO/PMX 3.375GM 50 ML IV SCH ×4 (04:58→23:30)
[2020-10-20] MEDS: LORazepam 2 MG/ML, 1ML IV PRN (05:13)
[2020-10-20 08:12] LABS: BASOPHILS % (AUTO) 1 % (0-1); EOSINOPHILS % (AUTO) 2 % (1-7); LYMPHOCYTES % (AUTO) 20 % (22-44); MEAN CORPUSCULAR HEMOGLOBIN 34.9 pg (27.5-34.5); MEAN CORPUSCULAR HGB CONC 35.1 g/dL (33.2-36.2); MEAN PLATELET VOLUME 8.3 fL (7.4-10.4); MONOCYTES % (AUTO) 11 % (2-9); NEUTROPHILS % (AUTO) 67 % (42-75); PLATELET COUNT 323 x10^3/uL (130-400); RED BLOOD COUNT 3.19 x10^6/uL (4.38-5.82); RED CELL DISTRIBUTION WIDTH 16.1 % (9.4-14.8)
[2020-10-20 08:16] LABS: MD NO
[2020-10-20 08:23] LABS: ANION GAP 8 mmol/L (5-15); CHLORIDE 113 mmol/L (98-107); CREATININE 0.59 mg/dL (0.7-1.3)
[2020-10-20 08:44] VITALS: BP 176/84
[2020-10-20] MEDS: CALCITONIN NASAL 200 UNITS/0.09ML, 3.7ML NAS SCH (08:52)
[2020-10-20] MEDS: LABETALOL 5MG/ML, 20ML IVPush PRN (09:01)
[2020-10-20 14:12] VITALS: BP 156/86
[2020-10-20] MEDS ORDERED: MAGNESIUM SULFATE PMX 4GM/100M 100 ML IVPB ONE (17:00)
[2020-10-20] MEDS ORDERED: HALOPERIDOL 5 MG/ML IV PRN (17:00)
[2020-10-20] MEDS: OXYcodone IR 5MG TABLET PO PRN (17:38)
[2020-10-20] MEDS ORDERED: POTASSIUM CHLORIDE 40 MEQ in SODIUM CHLORIDE 0.9% 500 ML IV ONE (18:00)
[2020-10-20] MEDS: ZIPRASIDONE 20 MG INJ IM PRN (20:15)
[2020-10-20 20:30] VITALS: BP 168/91
[2020-10-20] MEDS: DIVALPROEX 125 MG CAP.SPRINK PO SCH (21:20)
[2020-10-21] MEDS: LEVETIRACETAM 500 MG in SODIUM CHLORIDE 0.9% 100 ML IV SCH ×2 (00:54→12:18)
[2020-10-21] MEDS: CIPROFLOXACIN OPHTH SOLN 0.3%, 5ML RIGHTEYE SCH ×6 (00:58→21:55)
[2020-10-21] MEDS: ZIPRASIDONE 20 MG INJ IM PRN (01:57)
[2020-10-21 03:23] VITALS: BP 162/101
[2020-10-21] MEDS: ESOMEPRAZOLE 40 MG IV IVPush SCH ×2 (04:35→16:40)
[2020-10-21] MEDS: PIPERACILLIN/TAZO/PMX 3.375GM 50 ML IV SCH ×4 (05:18→23:29)
[2020-10-21 07:28] VITALS: BP 155/101
[2020-10-21 08:06] LABS: BASOPHILS % (AUTO) 1 % (0-1); EOSINOPHILS % (AUTO) 2 % (1-7); LYMPHOCYTES % (AUTO) 19 % (22-44); MEAN CORPUSCULAR HGB CONC 35.4 g/dL (33.2-36.2); MEAN PLATELET VOLUME 8.1 fL (7.4-10.4); MONOCYTES % (AUTO) 8 % (2-9); NEUTROPHILS % (AUTO) 70 % (42-75); PLATELET COUNT 406 x10^3/uL (130-400); RED BLOOD COUNT 3.23 x10^6/uL (4.38-5.82)
[2020-10-21] MEDS: POTASSIUM CHLORIDE 40 MEQ in SODIUM CHLORIDE 0.9% 1,000 ML IV SCH ×2 (08:07→21:55)
[2020-10-21] MEDS: DIVALPROEX 125 MG CAP.SPRINK PO SCH ×2 (08:07→21:55)
[2020-10-21] MEDS: CALCITONIN NASAL 200 UNITS/0.09ML, 3.7ML NAS SCH (08:07)
[2020-10-21 08:08] LABS: MD NO
[2020-10-21 08:19] LABS: ALANINE AMINOTRANSFERASE 46 U/L (12-78); ALBUMIN 2.5 g/dL (3.4-5.0); ANION GAP 7 mmol/L (5-15); CALCIUM 8.3 mg/dL (8.5-10.1); CHLORIDE 110 mmol/L (98-107)
[2020-10-21 08:22] LABS: ALKALINE PHOSPHATASE 100 U/L (45-117); BILIRUBIN,TOTAL 0.8 mg/dL (0.2-1.0)
[2020-10-21] MEDS: LABETALOL 5MG/ML, 20ML IVPush PRN (09:12)
[2020-10-21] MEDS: DIPHENHYDRAMINE 25 MG CAPSULE PO PRN ×2 (10:13→21:55)
[2020-10-21 12:25] VITALS: BP 159/85
[2020-10-21] MEDS ORDERED: MAGNESIUM SULFATE PMX 2GM/50ML 50 ML IV ONE (17:00)
[2020-10-21] MEDS: POTASSIUM ACID PHOSPHATE 500 MG TABLET.SOL PO SCH ×3 (17:06→23:29)
[2020-10-21 20:10] VITALS: BP 157/89
[2020-10-22] MEDS: LEVETIRACETAM 500 MG in SODIUM CHLORIDE 0.9% 100 ML IV SCH ×2 (00:09→11:13)
[2020-10-22 00:16] VITALS: BP 156/92
[2020-10-22] MEDS: CIPROFLOXACIN OPHTH SOLN 0.3%, 5ML RIGHTEYE SCH ×5 (02:33→20:31)
[2020-10-22] MEDS: ESOMEPRAZOLE 40 MG IV IVPush SCH ×2 (04:23→16:38)
[2020-10-22] MEDS: POTASSIUM ACID PHOSPHATE 500 MG TABLET.SOL PO SCH ×2 (05:00→10:32)
[2020-10-22] MEDS: PIPERACILLIN/TAZO/PMX 3.375GM 50 ML IV SCH ×3 (05:41→17:42)
[2020-10-22 06:21] VITALS: BP 158/89
[2020-10-22 06:33] LABS: BASOPHILS % (AUTO) 1 % (0-1); EOSINOPHILS % (AUTO) 2 % (1-7); LYMPHOCYTES % (AUTO) 22 % (22-44); MEAN CORPUSCULAR HEMOGLOBIN 34.4 pg (27.5-34.5); MEAN CORPUSCULAR HGB CONC 34.9 g/dL (33.2-36.2); MEAN PLATELET VOLUME 8.3 fL (7.4-10.4); MONOCYTES % (AUTO) 7 % (2-9); NEUTROPHILS % (AUTO) 68 % (42-75); PLATELET COUNT 431 x10^3/uL (130-400); RED BLOOD COUNT 3.12 x10^6/uL (4.38-5.82); RED CELL DISTRIBUTION WIDTH 16.4 % (9.4-14.8)
[2020-10-22 06:36] LABS: MD NO
[2020-10-22 06:40] LABS: ANION GAP 10 mmol/L (5-15); CHLORIDE 113 mmol/L (98-107)
[2020-10-22 06:41] LABS: CREATININE 0.57 mg/dL (0.7-1.3)
[2020-10-22] MEDS: DIVALPROEX 125 MG CAP.SPRINK PO SCH ×2 (09:01→20:31)
[2020-10-22] MEDS: POTASSIUM CHLORIDE 40 MEQ in SODIUM CHLORIDE 0.9% 1,000 ML IV SCH ×2 (09:01→17:42)
[2020-10-22] MEDS: CALCITONIN NASAL 200 UNITS/0.09ML, 3.7ML NAS SCH (09:01)
[2020-10-22] MEDS: MAGNESIUM OXIDE 400 MG TABLET PO SCH (09:02)
[2020-10-22 12:08] VITALS: BP 168/92
[2020-10-22] MEDS ORDERED: MAGNESIUM SULFATE PMX 2GM/50ML 50 ML IV ONE (18:00)
[2020-10-22 19:38] VITALS: BP 158/94
[2020-10-22 20:05] VITALS: BP 161/89
[2020-10-22] MEDS: DIPHENHYDRAMINE 25 MG CAPSULE PO PRN (20:31)
[2020-10-22] MEDS: ZIPRASIDONE 20 MG INJ IM PRN (21:57)
[2020-10-23] MEDS: NICOTINE 21 MG/24 HR PATCH.TD24 TD SCH ×2 (00:01→09:31)
[2020-10-23] MEDS: PIPERACILLIN/TAZO/PMX 3.375GM 50 ML IV SCH ×4 (00:02→18:34)
[2020-10-23] MEDS: CIPROFLOXACIN OPHTH SOLN 0.3%, 5ML RIGHTEYE SCH ×7 (00:51→22:55)
[2020-10-23] MEDS: LEVETIRACETAM 500 MG in SODIUM CHLORIDE 0.9% 100 ML IV SCH ×3 (00:51→22:55)
[2020-10-23 01:18] VITALS: BP 150/88
[2020-10-23 05:07] LABS: BASOPHILS % (AUTO) 1 % (0-1); EOSINOPHILS % (AUTO) 2 % (1-7); LYMPHOCYTES % (AUTO) 16 % (22-44); MEAN CORPUSCULAR HEMOGLOBIN 34.4 pg (27.5-34.5); MEAN CORPUSCULAR HGB CONC 34.9 g/dL (33.2-36.2); MEAN PLATELET VOLUME 7.8 fL (7.4-10.4); MONOCYTES % (AUTO) 7 % (2-9); NEUTROPHILS % (AUTO) 75 % (42-75); PLATELET COUNT 459 x10^3/uL (130-400); RED BLOOD COUNT 3.21 x10^6/uL (4.38-5.82); RED CELL DISTRIBUTION WIDTH 16.3 % (9.4-14.8)
[2020-10-23 05:09] LABS: MD NO
[2020-10-23 05:16] LABS: ANION GAP 10 mmol/L (5-15); CALCIUM 8.3 mg/dL (8.5-10.1); CHLORIDE 110 mmol/L (98-107); CREATININE 0.64 mg/dL (0.7-1.3)
[2020-10-23] MEDS: ESOMEPRAZOLE 40 MG IV IVPush SCH ×2 (05:49→16:41)
[2020-10-23 06:19] VITALS: BP 151/89
[2020-10-23] MEDS: CALCITONIN NASAL 200 UNITS/0.09ML, 3.7ML NAS SCH (09:29)
[2020-10-23] MEDS: MAGNESIUM OXIDE 400 MG TABLET PO SCH (09:30)
[2020-10-23] MEDS: DIVALPROEX 125 MG CAP.SPRINK PO SCH ×2 (09:30→19:46)
[2020-10-23] MEDS ORDERED: MAGNESIUM SULFATE PMX 2GM/50ML 50 ML IV ONE (09:30)
[2020-10-23] MEDS: MULTIVITAMIN 1 TABLET PO SCH (09:30)
[2020-10-23] MEDS: FOLIC ACID 1 MG TABLET PO SCH (09:30)
[2020-10-23] MEDS: THIAMINE 100MG TABLET PO SCH (09:31)
[2020-10-23] MEDS: POTASSIUM CHLORIDE 40 MEQ in SODIUM CHLORIDE 0.9% 1,000 ML IV SCH (09:58)
[2020-10-23] MEDS: POTASSIUM ACID PHOSPHATE 500 MG TABLET.SOL PO SCH ×3 (09:59→19:46)
[2020-10-23 14:15] VITALS: BP 150/81
[2020-10-23 18:54] VITALS: BP 135/87
[2020-10-23] MEDS: DIPHENHYDRAMINE 25 MG CAPSULE PO PRN (19:46)
[2020-10-24 01:55] VITALS: BP 137/87
[2020-10-24] MEDS: POTASSIUM ACID PHOSPHATE 500 MG TABLET.SOL PO SCH (03:34)
[2020-10-24] MEDS: ESOMEPRAZOLE 40 MG IV IVPush SCH ×2 (03:35→16:53)
[2020-10-24] MEDS: POTASSIUM CHLORIDE 40 MEQ in SODIUM CHLORIDE 0.9% 1,000 ML IV SCH (03:36)
[2020-10-24] MEDS: CIPROFLOXACIN OPHTH SOLN 0.3%, 5ML RIGHTEYE SCH ×6 (03:37→23:38)
[2020-10-24] MEDS: PIPERACILLIN/TAZO/PMX 3.375GM 50 ML IV SCH ×3 (05:21→15:58)
[2020-10-24 05:51] LABS: BASOPHILS % (AUTO) 1 % (0-1); EOSINOPHILS % (AUTO) 2 % (1-7); LYMPHOCYTES % (AUTO) 23 % (22-44); MEAN CORPUSCULAR HEMOGLOBIN 34.6 pg (27.5-34.5); MEAN CORPUSCULAR HGB CONC 34.9 g/dL (33.2-36.2); MEAN PLATELET VOLUME 8.2 fL (7.4-10.4); MONOCYTES % (AUTO) 8 % (2-9); NEUTROPHILS % (AUTO) 65 % (42-75); PLATELET COUNT 507 x10^3/uL (130-400); RED BLOOD COUNT 3.17 x10^6/uL (4.38-5.82); RED CELL DISTRIBUTION WIDTH 16.7 % (9.4-14.8)
[2020-10-24 06:00] LABS: ANION GAP 8 mmol/L (5-15); CHLORIDE 110 mmol/L (98-107)
[2020-10-24 06:01] LABS: CREATININE 0.66 mg/dL (0.7-1.3)
[2020-10-24 06:28] LABS: MD SCAN
[2020-10-24] MEDS ORDERED: MAGNESIUM SULFATE PMX 4GM/100M 100 ML IVPB ONE (09:30)
[2020-10-24 09:36] VITALS: BP 133/77
[2020-10-24] MEDS: THIAMINE 100MG TABLET PO SCH (10:01)
[2020-10-24] MEDS: DIVALPROEX 125 MG CAP.SPRINK PO SCH ×3 (10:06→21:33)
[2020-10-24] MEDS: FOLIC ACID 1 MG TABLET PO SCH (10:06)
[2020-10-24] MEDS: MULTIVITAMIN 1 TABLET PO SCH (10:07)
[2020-10-24] MEDS: NICOTINE 21 MG/24 HR PATCH.TD24 TD SCH (10:12)
[2020-10-24] MEDS: CALCITONIN NASAL 200 UNITS/0.09ML, 3.7ML NAS SCH (10:12)
[2020-10-24 13:03] VITALS: BP 126/87
[2020-10-24] MEDS: LEVETIRACETAM 500 MG in SODIUM CHLORIDE 0.9% 100 ML IV SCH (15:27)
[2020-10-24 18:38] VITALS: BP 152/91
[2020-10-24] MEDS: MAGNESIUM OXIDE 400 MG TABLET PO SCH ×3 (20:14→21:38)
[2020-10-24] MEDS ORDERED: LEVETIRACETAM 500 MG TABLET PO SCH (21:00)
[2020-10-25] VITALS: BP 154/90
[2020-10-25] MEDS ORDERED: LABETALOL 5MG/ML, 20ML IVPush PRN (02:00)
[2020-10-25] MEDS: ESOMEPRAZOLE 40 MG IV IVPush SCH ×2 (04:09→15:54)
[2020-10-25] MEDS: CIPROFLOXACIN OPHTH SOLN 0.3%, 5ML RIGHTEYE SCH ×6 (04:09→23:41)
[2020-10-25 05:32] LABS: BASOPHILS % (AUTO) 1 % (0-1); EOSINOPHILS % (AUTO) 3 % (1-7); LYMPHOCYTES % (AUTO) 28 % (22-44); MEAN CORPUSCULAR HEMOGLOBIN 34.7 pg (27.5-34.5); MEAN CORPUSCULAR HGB CONC 34.8 g/dL (33.2-36.2); MEAN PLATELET VOLUME 8.3 fL (7.4-10.4); MONOCYTES % (AUTO) 8 % (2-9); NEUTROPHILS % (AUTO) 60 % (42-75); PLATELET COUNT 547 x10^3/uL (130-400); RED BLOOD COUNT 3.44 x10^6/uL (4.38-5.82); RED CELL DISTRIBUTION WIDTH 16.2 % (9.4-14.8)
[2020-10-25 05:38] LABS: MD NO
[2020-10-25 05:45] LABS: ANION GAP 7 mmol/L (5-15); CALCIUM 9.3 mg/dL (8.5-10.1); CHLORIDE 107 mmol/L (98-107)
[2020-10-25] MEDS ORDERED: POTASSIUM CHLORIDE 20 MEQ TAB.ER.PRT PO ONE (06:30)
[2020-10-25 07:00] VITALS: BP 154/94
[2020-10-25] MEDS: MULTIVITAMIN 1 TABLET PO SCH (08:47)
[2020-10-25] MEDS: MAGNESIUM OXIDE 400 MG TABLET PO SCH ×2 (08:47→20:15)
[2020-10-25] MEDS: DIVALPROEX 125 MG CAP.SPRINK PO SCH ×2 (08:47→20:16)
[2020-10-25] MEDS: FOLIC ACID 1 MG TABLET PO SCH (08:47)
[2020-10-25] MEDS: THIAMINE 100MG TABLET PO SCH (08:47)
[2020-10-25] MEDS: NICOTINE 21 MG/24 HR PATCH.TD24 TD SCH (08:48)
[2020-10-25] MEDS: CALCITONIN NASAL 200 UNITS/0.09ML, 3.7ML NAS SCH (08:48)
[2020-10-25] MEDS ORDERED: LEVETIRACETAM 100 MG/ML ORAL SOL PO SCH (09:00)
[2020-10-25 13:04] VITALS: BP 134/78
[2020-10-25 18:17] VITALS: BP 120/86
[2020-10-25 20:10] VITALS: BP 134/84
[2020-10-26 00:34] VITALS: BP 153/94
[2020-10-26] MEDS: CIPROFLOXACIN OPHTH SOLN 0.3%, 5ML RIGHTEYE SCH ×3 (03:30→11:30)
[2020-10-26 05:29] LABS: BASOPHILS % (AUTO) 1 % (0-1); EOSINOPHILS % (AUTO) 4 % (1-7); LYMPHOCYTES % (AUTO) 36 % (22-44); MEAN CORPUSCULAR HEMOGLOBIN 34.5 pg (27.5-34.5); MEAN CORPUSCULAR HGB CONC 34.7 g/dL (33.2-36.2); MEAN PLATELET VOLUME 8.3 fL (7.4-10.4); MONOCYTES % (AUTO) 9 % (2-9); NEUTROPHILS % (AUTO) 50 % (42-75); PLATELET COUNT 565 x10^3/uL (130-400); RED BLOOD COUNT 3.03 x10^6/uL (4.38-5.82); RED CELL DISTRIBUTION WIDTH 16.5 % (9.4-14.8)
[2020-10-26 05:34] LABS: MD NO
[2020-10-26 05:40] LABS: ANION GAP 9 mmol/L (5-15); CALCIUM 9.3 mg/dL (8.5-10.1); CHLORIDE 106 mmol/L (98-107)
[2020-10-26 05:42] LABS: CREATININE 0.59 mg/dL (0.7-1.3)
[2020-10-26 06:36] VITALS: BP 135/81
[2020-10-26] MEDS: DIVALPROEX 125 MG CAP.SPRINK PO SCH ×2 (07:54→21:00)
[2020-10-26] MEDS: MAGNESIUM OXIDE 400 MG TABLET PO SCH ×2 (07:57→21:00)
[2020-10-26] MEDS: FOLIC ACID 1 MG TABLET PO SCH (07:57)
[2020-10-26] MEDS: THIAMINE 100MG TABLET PO SCH (07:58)
[2020-10-26] MEDS: MULTIVITAMIN 1 TABLET PO SCH (07:58)
[2020-10-26] MEDS: CHOLECALCIFEROL 1,000 UNIT TABLET PO SCH (07:58)
[2020-10-26] MEDS: NICOTINE 21 MG/24 HR PATCH.TD24 TD SCH (08:01)
[2020-10-26] MEDS: CALCITONIN NASAL 200 UNITS/0.09ML, 3.7ML NAS SCH (08:20)
[2020-10-26] MEDS: HALOPERIDOL 1 MG TABLET PO PRN (11:36)
[2020-10-26 13:05] VITALS: BP 145/85
[2020-10-26] MEDS ORDERED: HALOPERIDOL 5 MG/ML IM ONE (18:45)
[2020-10-26 20:37] VITALS: BP 127/82
[2020-10-27 00:45] VITALS: BP 156/93
[2020-10-27 07:12] VITALS: BP 156/97
[2020-10-27] MEDS: DIVALPROEX 125 MG CAP.SPRINK PO SCH ×2 (07:27→19:36)
[2020-10-27] MEDS: THIAMINE 100MG TABLET PO SCH (07:27)
[2020-10-27] MEDS: CHOLECALCIFEROL 1,000 UNIT TABLET PO SCH (07:28)
[2020-10-27] MEDS: MULTIVITAMIN 1 TABLET PO SCH (07:28)
[2020-10-27] MEDS: MAGNESIUM OXIDE 400 MG TABLET PO SCH ×2 (07:28→19:36)
[2020-10-27] MEDS: NICOTINE 21 MG/24 HR PATCH.TD24 TD SCH (07:28)
[2020-10-27] MEDS: FOLIC ACID 1 MG TABLET PO SCH (07:28)
[2020-10-27] MEDS: CALCITONIN NASAL 200 UNITS/0.09ML, 3.7ML NAS SCH (07:33)
[2020-10-27] MEDS: MULTIVIT.W/IRON, MINERALS ORAL SOL PO SCH (12:24)
[2020-10-27 13:02] VITALS: BP 121/78
[2020-10-27] MEDS: CALCIUM CARBONATE 500 MG TAB.CHEW PO PRN ×2 (14:23→18:38)
[2020-10-27] MEDS: HALOPERIDOL 1 MG TABLET PO PRN (15:54)
[2020-10-27 20:00] VITALS: BP 139/90
[2020-10-28 00:53] VITALS: BP 135/84
[2020-10-28] MEDS: HALOPERIDOL 1 MG TABLET PO PRN ×2 (01:21→21:25)
[2020-10-28] MEDS: CALCIUM CARBONATE 500 MG TAB.CHEW PO PRN ×5 (04:07→22:30)
[2020-10-28 06:28] VITALS: BP 131/84
[2020-10-28 07:36] LABS: BASOPHILS % (AUTO) 2 % (0-1); EOSINOPHILS % (AUTO) 3 % (1-7); LYMPHOCYTES % (AUTO) 30 % (22-44); MD NO; MEAN CORPUSCULAR HEMOGLOBIN 34.5 pg (27.5-34.5); MEAN CORPUSCULAR HGB CONC 34.9 g/dL (33.2-36.2); MONOCYTES % (AUTO) 8 % (2-9); NEUTROPHILS % (AUTO) 57 % (42-75); PLATELET COUNT 540 x10^3/uL (130-400); RED BLOOD COUNT 3.16 x10^6/uL (4.38-5.82)
[2020-10-28 07:44] LABS: ANION GAP 10 mmol/L (5-15); CALCIUM 10.1 mg/dL (8.5-10.1); CHLORIDE 103 mmol/L (98-107); CREATININE 0.69 mg/dL (0.7-1.3)
[2020-10-28] MEDS: FOLIC ACID 1 MG TABLET PO SCH (10:01)
[2020-10-28] MEDS: CHOLECALCIFEROL 1,000 UNIT TABLET PO SCH (10:01)
[2020-10-28] MEDS: NICOTINE 21 MG/24 HR PATCH.TD24 TD SCH (10:02)
[2020-10-28] MEDS: MAGNESIUM OXIDE 400 MG TABLET PO SCH ×2 (10:02→19:41)
[2020-10-28] MEDS: THIAMINE 100MG TABLET PO SCH (10:02)
[2020-10-28] MEDS: CALCITONIN NASAL 200 UNITS/0.09ML, 3.7ML NAS SCH (10:03)
[2020-10-28] MEDS: MULTIVIT.W/IRON, MINERALS ORAL SOL PO SCH (10:03)
[2020-10-28] MEDS: DIVALPROEX 125 MG CAP.SPRINK PO SCH ×2 (10:03→19:41)
[2020-10-28 12:04] VITALS: BP 125/80
[2020-10-28 12:45] VITALS: BP 127/82
[2020-10-28] MEDS: OMEPRAZOLE 20 MG CAPSULE.DR PO SCH (14:13)
[2020-10-28 19:31] VITALS: BP 144/89
[2020-10-29 03:16] VITALS: BP 121/77
[2020-10-29] MEDS: OMEPRAZOLE 20 MG CAPSULE.DR PO SCH (05:40)
[2020-10-29 07:09] VITALS: BP 130/76
[2020-10-29] MEDS: CALCITONIN NASAL 200 UNITS/0.09ML, 3.7ML NAS SCH (09:00)
[2020-10-29] MEDS: MULTIVIT.W/IRON, MINERALS ORAL SOL PO SCH (09:00)
[2020-10-29] MEDS: FOLIC ACID 1 MG TABLET PO SCH (10:01)
[2020-10-29] MEDS: MAGNESIUM OXIDE 400 MG TABLET PO SCH ×2 (10:02→21:20)
[2020-10-29] MEDS: CHOLECALCIFEROL 1,000 UNIT TABLET PO SCH (10:02)
[2020-10-29] MEDS: THIAMINE 100MG TABLET PO SCH (10:02)
[2020-10-29] MEDS: DIVALPROEX 125 MG CAP.SPRINK PO SCH ×2 (10:03→21:20)
[2020-10-29] MEDS: NICOTINE 21 MG/24 HR PATCH.TD24 TD SCH (10:04)
[2020-10-29 15:18] VITALS: BP 134/81
[2020-10-29] MEDS: CALCIUM CARBONATE 500 MG TAB.CHEW PO PRN ×2 (16:58→21:20)
[2020-10-29] MEDS: HALOPERIDOL 1 MG TABLET PO PRN (17:34)
[2020-10-29 20:06] VITALS: BP 132/80
[2020-10-30 01:08] VITALS: BP 111/71
[2020-10-30] MEDS: OMEPRAZOLE 20 MG CAPSULE.DR PO SCH (05:07)
[2020-10-30 07:52] VITALS: BP 128/75
[2020-10-30] MEDS: MULTIVIT.W/IRON, MINERALS ORAL SOL PO SCH (08:16)
[2020-10-30] MEDS: CALCITONIN NASAL 200 UNITS/0.09ML, 3.7ML NAS SCH (08:16)
[2020-10-30] MEDS: THIAMINE 100MG TABLET PO SCH (08:16)
[2020-10-30] MEDS: MAGNESIUM OXIDE 400 MG TABLET PO SCH ×2 (08:16→20:09)
[2020-10-30] MEDS: CALCIUM CARBONATE 500 MG TAB.CHEW PO PRN ×3 (08:16→17:41)
[2020-10-30] MEDS: NICOTINE 21 MG/24 HR PATCH.TD24 TD SCH (08:17)
[2020-10-30] MEDS: DIVALPROEX 125 MG CAP.SPRINK PO SCH ×2 (08:17→20:09)
[2020-10-30] MEDS: CHOLECALCIFEROL 1,000 UNIT TABLET PO SCH (08:17)
[2020-10-30] MEDS: FOLIC ACID 1 MG TABLET PO SCH (08:17)
[2020-10-30] MEDS: HALOPERIDOL 1 MG TABLET PO PRN (12:54)
[2020-10-30 12:55] VITALS: BP 140/74
[2020-10-30] MEDS ORDERED: HALOPERIDOL 5 MG TABLET PO ONE (17:30)
[2020-10-30] MEDS ORDERED: ONDANSETRON 2MG/ML, 2ML ONE (17:49)
[2020-10-30] MEDS ORDERED: ONDANSETRON 2MG/ML, 2ML IVPush PRN (18:00)
[2020-10-30 18:37] VITALS: BP 129/77
[2020-10-30] MEDS ORDERED: HALOPERIDOL 5 MG/ML IM PRN (20:00)
[2020-10-30] MEDS: OXYcodone IR 5MG TABLET PO PRN (20:09)
[2020-10-30] MEDS: DIPHENHYDRAMINE 25 MG CAPSULE PO PRN (20:09)
[2020-10-31 00:01] VITALS: BP 112/69
[2020-10-31] MEDS: OMEPRAZOLE 20 MG CAPSULE.DR PO SCH (06:41)
[2020-10-31 06:44] VITALS: BP 125/82
[2020-10-31 07:04] LABS: BASOPHILS % (AUTO) 2 % (0-1); EOSINOPHILS % (AUTO) 5 % (1-7); LYMPHOCYTES % (AUTO) 40 % (22-44); MEAN CORPUSCULAR HEMOGLOBIN 34.7 pg (27.5-34.5); MEAN CORPUSCULAR HGB CONC 34.5 g/dL (33.2-36.2); MEAN PLATELET VOLUME 7.9 fL (7.4-10.4); MONOCYTES % (AUTO) 10 % (2-9); NEUTROPHILS % (AUTO) 45 % (42-75); PLATELET COUNT 486 x10^3/uL (130-400); RED BLOOD COUNT 3.28 x10^6/uL (4.38-5.82); RED CELL DISTRIBUTION WIDTH 15.8 % (9.4-14.8)
[2020-10-31 07:07] LABS: ANION GAP 9 mmol/L (5-15); CHLORIDE 104 mmol/L (98-107); CREATININE 0.73 mg/dL (0.7-1.3); MD NO
[2020-10-31] MEDS: CHOLECALCIFEROL 1,000 UNIT TABLET PO SCH (08:00)
[2020-10-31] MEDS: THIAMINE 100MG TABLET PO SCH (08:00)
[2020-10-31] MEDS: NICOTINE 21 MG/24 HR PATCH.TD24 TD SCH (08:01)
[2020-10-31] MEDS: CALCITONIN NASAL 200 UNITS/0.09ML, 3.7ML NAS SCH (08:02)
[2020-10-31] MEDS: DIVALPROEX 125 MG CAP.SPRINK PO SCH ×2 (08:02→19:42)
[2020-10-31] MEDS: MAGNESIUM OXIDE 400 MG TABLET PO SCH ×2 (08:03→19:42)
[2020-10-31] MEDS: FOLIC ACID 1 MG TABLET PO SCH (08:03)
[2020-10-31] MEDS: MULTIVIT.W/IRON, MINERALS ORAL SOL PO SCH (08:03)
[2020-10-31] MEDS: CALCIUM CARBONATE 500 MG TAB.CHEW PO PRN ×4 (08:12→19:56)
[2020-10-31] MEDS ORDERED: HALOPERIDOL 5 MG/ML IM ONE (14:00)
[2020-10-31 15:23] VITALS: BP 125/76
[2020-10-31 18:37] VITALS: BP 128/82
[2020-10-31] MEDS: OXYcodone IR 5MG TABLET PO PRN (19:42)
[2020-10-31] MEDS: HALOPERIDOL 1 MG TABLET PO PRN (19:42)
[2020-11-01 00:23] VITALS: BP 120/78
[2020-11-01] MEDS: CALCIUM CARBONATE 500 MG TAB.CHEW PO PRN ×2 (01:30→11:40)
[2020-11-01] MEDS: OMEPRAZOLE 20 MG CAPSULE.DR PO SCH (05:33)
[2020-11-01 07:58] VITALS: BP 108/70
[2020-11-01] MEDS: NICOTINE 21 MG/24 HR PATCH.TD24 TD SCH (08:10)
[2020-11-01] MEDS: DIVALPROEX 125 MG CAP.SPRINK PO SCH (08:11)
[2020-11-01] MEDS: CHOLECALCIFEROL 1,000 UNIT TABLET PO SCH (08:12)
[2020-11-01] MEDS: CALCITONIN NASAL 200 UNITS/0.09ML, 3.7ML NAS SCH (08:12)
[2020-11-01] MEDS: MAGNESIUM OXIDE 400 MG TABLET PO SCH (08:12)
[2020-11-01] MEDS: FOLIC ACID 1 MG TABLET PO SCH (08:12)
[2020-11-01] MEDS: MULTIVIT.W/IRON, MINERALS ORAL SOL PO SCH (08:13)
[2020-11-01] MEDS: THIAMINE 100MG TABLET PO SCH (08:17)
[2020-11-01 13:35] VITALS: BP 128/79
== END 2020-11-01 15:40 | disposition left against medical advice (07) | DRG 871 ==
LOC: ED 02:13 → EDIP 02:16 → 4WST 04:24 → 3N 10-24 14:15
PROVIDERS: ADMIT Family Medicine; ATTEND Hospitalist
DX: A41.9 Sepsis, unspecified organism (principal); S06.5X9A Traumatic subdural hemorrhage with loss of consciousness of unspecified duration, initial encounter; G93.41 Metabolic encephalopathy; J18.9 Pneumonia, unspecified organism; J96.01 Acute respiratory failure with hypoxia; N17.0 Acute kidney failure with tubular necrosis; E51.2 Wernicke's encephalopathy; E87.1 Hypo-osmolality and hyponatremia; E87.2 Acidosis; F10.231 Alcohol dependence with withdrawal delirium; M62.82 Rhabdomyolysis; N30.01 Acute cystitis with hematuria; D50.9 Iron deficiency anemia, unspecified; D69.59 Other secondary thrombocytopenia; E83.42 Hypomagnesemia; E83.52 Hypercalcemia; E86.0 Dehydration; E87.6 Hypokalemia; E88.09 Other disorders of plasma-protein metabolism, not elsewhere classified; F17.200 Nicotine dependence, unspecified, uncomplicated; H10.9 Unspecified conjunctivitis; K21.9 Gastro-esophageal reflux disease without esophagitis; W18.30XA Fall on same level, unspecified, initial encounter; R74.01 Elevation of levels of liver transaminase levels; I25.2 Old myocardial infarction; Z79.82 Long term (current) use of aspirin; Y93.89 Activity, other specified; Y92.098 Other place in other non-institutional residence as the place of occurrence of the external cause; Y99.8 Other external cause status
CPT/HCPCS: 36415; 70450; 71045; 72125; 76770; 80048; 80053; 80299; 80307; 80320; 80329; 81001; 82140; 82306; 82310; 82436; 82550; 82607; 82962; 83605; 83690; 83735; 83970; 84100; 84133; 84145; 84300; 84443; 85014; 85018; 85025; 85610; 85730; 86850; 86900; 87040; 87086; 93005; 96365; 96375; 96376; 99291; G0378; J0696; J1953; J2405; J2543; J3411; J3475; J3480; J3486; J7070; 92523-GN; C9113; G0480; J1630; J2060; J7030; J7040; Q0163; Q0177

== ENCOUNTER 2020-11-17 21:14 | Inpatient (IN) | payer SELFPAY ==
[~2020-11-17] VITALS: Ht 182.9 cm; Wt 84.7 kg
[2020-11-17] MEDS ORDERED: FAMOTIDINE 20 MG TABLET PO ONE (21:30)
[2020-11-17] MEDS ORDERED: ONDANSETRON ODT 4 MG PO ONE (21:30)
[2020-11-17] MEDS ORDERED: PLEASE ENTER HEIGHT AND WEIGHT MC SCH (21:30)
[2020-11-17] MEDS ORDERED: FAMOTIDINE 20 MG TABLET ONE (21:45)
[2020-11-17] MEDS ORDERED: ONDANSETRON ODT 4 MG ONE (21:46)
[2020-11-17 21:55] LABS: ALANINE AMINOTRANSFERASE 69 U/L (12-78); ALBUMIN 3.6 g/dL (3.4-5.0); ANION GAP 10 mmol/L (5-15); CHLORIDE 83 mmol/L (98-107); CREATININE 1.23 mg/dL (0.7-1.3)
[2020-11-17 21:59] LABS: ALKALINE PHOSPHATASE 171 U/L (45-117); BILIRUBIN,TOTAL 0.7 mg/dL (0.2-1.0); TROPONIN I < 0.015 ng/mL (0.000-0.045)
[2020-11-17 22:01] LABS: BASOPHILS % (AUTO) 1 % (0-1); EOSINOPHILS % (AUTO) 0 % (1-7); LYMPHOCYTES % (AUTO) 20 % (22-44); MEAN CORPUSCULAR HEMOGLOBIN 35.1 pg (27.5-34.5); MEAN CORPUSCULAR HGB CONC 35.6 g/dL (33.2-36.2); MEAN PLATELET VOLUME 8.8 fL (7.4-10.4); MONOCYTES % (AUTO) 7 % (2-9); NEUTROPHILS % (AUTO) 73 % (42-75); PLATELET COUNT 251 x10^3/uL (130-400); RED CELL DISTRIBUTION WIDTH 15.9 % (9.4-14.8)
[2020-11-17 22:03] LABS: MD NO
[2020-11-17 22:05] LABS: CALCIUM 15.3 mg/dL (8.5-10.1)
[2020-11-17] MEDS ORDERED: SODIUM CHLORIDE 0.9% 1,000ML IVBOLUS ONE (22:30)
[2020-11-17 22:48] LABS: ALANINE AMINOTRANSFERASE 62 U/L (12-78); ALBUMIN 3.3 g/dL (3.4-5.0); ANION GAP 11 mmol/L (5-15); CHLORIDE 84 mmol/L (98-107); CREATININE 1.02 mg/dL (0.7-1.3)
[2020-11-17 22:51] LABS: ALKALINE PHOSPHATASE 150 U/L (45-117); BILIRUBIN,TOTAL 0.6 mg/dL (0.2-1.0)
[2020-11-17 22:54] LABS: CALCIUM 14.7 mg/dL (8.5-10.1)
[2020-11-17] MEDS ORDERED: POTASSIUM CHLORIDE 40 MEQ in SODIUM CHLORIDE 0.9% 500 ML IV ONE (23:00)
[2020-11-17] MEDS ORDERED: POTASSIUM CHLORIDE 20 MEQ TAB.ER.PRT PO ONE (23:00)
[2020-11-17] MEDS ORDERED: POTASSIUM CHLORIDE 20 MEQ TAB.ER.PRT ONE (23:20)
[2020-11-18] MEDS ORDERED: LORazepam 1MG TABLET PO PRN ×4
[2020-11-18] MEDS ORDERED: ACETAMINOPHEN 325 MG TABLET PO PRN
[2020-11-18] MEDS ORDERED: FOLIC ACID 5 MG/ML IM ONE
[2020-11-18] MEDS ORDERED: LORazepam 0.5MG TABLET PO PRN
[2020-11-18] MEDS ORDERED: THIAMINE 200 MG in DEXTROSE 5% 50 ML IVPB ONE
[2020-11-18] MEDS ORDERED: DIAZEPAM 10 MG TABLET PO SCH
[2020-11-18] MEDS ORDERED: ONDANSETRON 2MG/ML, 2ML IVPush PRN
[2020-11-18] MEDS ORDERED: LABETALOL 5MG/ML, 20ML IVPush PRN
--- NOTE | 2020-11-18 01:01 | NUR ---
Pt to ER with c/o of vomiting for the last 3 hrs. Pt states he drinks heavily daily, started vomiting 3 days ago, and 3 hrs ago started vomiting blood. Pt states he has been falling more at home and having a hard time taking care of himself. Pt to Room, on monitor, Warm blanket given. Will monitor.
--- NOTE | 2020-11-18 01:05 | NUR ---
Pt calm in bed, A&O, with stable VS. Pt with periods of nausea and small amount of blood tinged blood. Pt c/o of being cold. Warm blanket given. Will continue to monitor.
[2020-11-18 01:36] VITALS: BP 145/74
[2020-11-18 01:48] VITALS: BP 145/79
[2020-11-18] MEDS: DIAZEPAM 5 MG/ML, 2ML IV SCH ×5 (04:19→22:05)
[2020-11-18 05:28] LABS: CHLORIDE 92 mmol/L (98-107)
[2020-11-18] MEDS: NS + 40MEQ KCL 1,000 ML IV SCH ×2 (05:33→16:35)
[2020-11-18 05:35] LABS: ALANINE AMINOTRANSFERASE 46 U/L (12-78); ALBUMIN 2.7 g/dL (3.4-5.0); ALKALINE PHOSPHATASE 118 U/L (45-117); ANION GAP 9 mmol/L (5-15); BILIRUBIN,TOTAL 0.7 mg/dL (0.2-1.0); CALCIUM 12.6 mg/dL (8.5-10.1); TOTAL PROTEIN 6.5 g/dL (6.4-8.2)
[2020-11-18 07:00] LABS: BASOPHILS % (AUTO) 1 % (0-1); EOSINOPHILS % (AUTO) 0 % (1-7); LYMPHOCYTES % (AUTO) 13 % (22-44); MD NO; MEAN CORPUSCULAR HEMOGLOBIN 34.3 pg (27.5-34.5); MEAN CORPUSCULAR HGB CONC 34.8 g/dL (33.2-36.2); MEAN PLATELET VOLUME 8.4 fL (7.4-10.4); MONOCYTES % (AUTO) 7 % (2-9); NEUTROPHILS % (AUTO) 79 % (42-75); PLATELET COUNT 174 x10^3/uL (130-400); RED BLOOD COUNT 3.77 x10^6/uL (4.38-5.82); RED CELL DISTRIBUTION WIDTH 15.8 % (9.4-14.8)
[2020-11-18] MEDS: PANTOPRAZOLE 40MG TABLET PO SCH (09:25)
[2020-11-18] MEDS: MULTIVITAMINS/MINERALS TABLET PO SCH (09:25)
[2020-11-18 14:05] VITALS: BP 145/87
[2020-11-18 19:35] VITALS: BP 128/79
[2020-11-18 22:14] VITALS: BP 128/88
[2020-11-18 22:42] VITALS: BP 114/78
[2020-11-19] MEDS ORDERED: DIAZEPAM 5 MG TABLET PO SCH
[2020-11-19] MEDS: NS + 40MEQ KCL 1,000 ML IV SCH ×2 (00:26→17:40)
[2020-11-19 01:32] VITALS: BP 133/67
[2020-11-19 06:08] LABS: ALBUMIN 2.5 g/dL (3.4-5.0); ANION GAP 4 mmol/L (5-15); CHLORIDE 104 mmol/L (98-107); CREATININE 1.08 mg/dL (0.7-1.3)
[2020-11-19 06:11] LABS: BASOPHILS % (AUTO) 1 % (0-1); EOSINOPHILS % (AUTO) 2 % (1-7); LYMPHOCYTES % (AUTO) 27 % (22-44); MEAN CORPUSCULAR HEMOGLOBIN 34.2 pg (27.5-34.5); MEAN CORPUSCULAR HGB CONC 33.9 g/dL (33.2-36.2); MEAN PLATELET VOLUME 9.1 fL (7.4-10.4); MONOCYTES % (AUTO) 7 % (2-9); NEUTROPHILS % (AUTO) 63 % (42-75); PLATELET COUNT 150 x10^3/uL (130-400); RED BLOOD COUNT 3.46 x10^6/uL (4.38-5.82); RED CELL DISTRIBUTION WIDTH 15.6 % (9.4-14.8)
[2020-11-19 06:21] LABS: MD NO
[2020-11-19 06:23] VITALS: BP 147/84
[2020-11-19] MEDS ORDERED: MAGNESIUM SULFATE PMX 2GM/50ML 50 ML IV ONE (07:00)
[2020-11-19] MEDS ORDERED: POTASSIUM PHOSPHATE 44 MEQ in SODIUM CHLORIDE 0.9% 500 ML IV ONE (07:00)
[2020-11-19] MEDS: MULTIVITAMINS/MINERALS TABLET PO SCH (08:25)
[2020-11-19] MEDS: PANTOPRAZOLE 40MG TABLET PO SCH (08:25)
[2020-11-19] MEDS: POTASSIUM CHLORIDE IV SCH (08:28)
[2020-11-19] MEDS: [UNRECOGNIZED DRUG - OTHER] IV SCH (08:28)
[2020-11-19] MEDS: THIAMINE IV SCH (08:28)
[2020-11-19] MEDS: MAGNESIUM SULFATE IV SCH (08:28)
[2020-11-19] MEDS ORDERED: THIAMINE 100 MG in DEXTROSE 5% 50 ML IVPB SCH (09:00)
[2020-11-19 11:53] VITALS: BP 121/72
[2020-11-19] MEDS: CALCIUM CARBONATE 500 MG TAB.CHEW PO PRN (18:00)
[2020-11-19 19:52] VITALS: BP 128/77
[2020-11-20] MEDS ORDERED: HALOPERIDOL 5 MG/ML IM PRN (01:00)
[2020-11-20 02:00] VITALS: BP 134/82
[2020-11-20] MEDS: NS + 40MEQ KCL 1,000 ML IV SCH ×2 (02:18→19:39)
[2020-11-20 05:51] LABS: BASOPHILS % (AUTO) 1 % (0-1); EOSINOPHILS % (AUTO) 5 % (1-7); LYMPHOCYTES % (AUTO) 38 % (22-44); MEAN CORPUSCULAR HEMOGLOBIN 34.8 pg (27.5-34.5); MEAN CORPUSCULAR HGB CONC 34.7 g/dL (33.2-36.2); MEAN PLATELET VOLUME 8.5 fL (7.4-10.4); MONOCYTES % (AUTO) 6 % (2-9); NEUTROPHILS % (AUTO) 50 % (42-75); PLATELET COUNT 165 x10^3/uL (130-400); RED CELL DISTRIBUTION WIDTH 16.3 % (9.4-14.8)
[2020-11-20 05:53] LABS: MD NO
[2020-11-20 06:06] LABS: CHLORIDE 103 mmol/L (98-107)
[2020-11-20 06:10] LABS: ANION GAP 9 mmol/L (5-15); CALCIUM 10.9 mg/dL (8.5-10.1); CREATININE 0.94 mg/dL (0.7-1.3)
[2020-11-20] MEDS ORDERED: POTASSIUM CHLORIDE 20 MEQ TAB.ER.PRT PO ONE (06:30)
[2020-11-20] MEDS ORDERED: CHLORDIAZEPOXIDE 25 MG CAPSULE PO PRN ×2 (08:30)
[2020-11-20] MEDS: CHLORDIAZEPOXIDE 25 MG CAPSULE PO PRN (08:31)
[2020-11-20] MEDS: MULTIVITAMINS/MINERALS TABLET PO SCH (08:32)
[2020-11-20] MEDS: PANTOPRAZOLE 40MG TABLET PO SCH (08:32)
[2020-11-20] MEDS: [UNRECOGNIZED DRUG - OTHER] IV SCH (10:43)
[2020-11-20] MEDS: MAGNESIUM SULFATE IV SCH (10:43)
[2020-11-20] MEDS: POTASSIUM CHLORIDE IV SCH (10:43)
[2020-11-20] MEDS: THIAMINE IV SCH (10:43)
[2020-11-20 11:49] VITALS: BP 134/83
[2020-11-20] MEDS ORDERED: DIAZEPAM 5 MG TABLET PO SCH (15:00)
[2020-11-20] MEDS ORDERED: DIAZEPAM 5 MG/ML, 10ML VIAL IV ONE (15:00)
[2020-11-20] MEDS ORDERED: DIAZEPAM 5 MG/ML, 10ML VIAL IV SCH ×2 (16:00→21:00)
[2020-11-20] MEDS: CALCIUM CARBONATE 500 MG TAB.CHEW PO PRN (19:29)
[2020-11-20 19:59] VITALS: BP 140/82
[2020-11-20] MEDS ORDERED: DIAZEPAM 5 MG TABLET PO PRN (22:30)
[2020-11-20] MEDS ORDERED: DIAZEPAM 5 MG/ML, 10ML VIAL IV PRN (22:30)
[2020-11-21 01:46] VITALS: BP 132/79
[2020-11-21] MEDS: CHLORDIAZEPOXIDE 10 MG CAPSULE PO PRN ×2 (02:19→11:13)
[2020-11-21] MEDS: NS + 40MEQ KCL 1,000 ML IV SCH ×2 (03:50→18:27)
[2020-11-21 05:52] LABS: BASOPHILS % (AUTO) 1 % (0-1); EOSINOPHILS % (AUTO) 5 % (1-7); LYMPHOCYTES % (AUTO) 37 % (22-44); MEAN CORPUSCULAR HEMOGLOBIN 34.4 pg (27.5-34.5); MEAN CORPUSCULAR HGB CONC 34.1 g/dL (33.2-36.2); MEAN PLATELET VOLUME 8.2 fL (7.4-10.4); MONOCYTES % (AUTO) 7 % (2-9); NEUTROPHILS % (AUTO) 49 % (42-75); PLATELET COUNT 165 x10^3/uL (130-400); RED CELL DISTRIBUTION WIDTH 15.9 % (9.4-14.8)
[2020-11-21 05:54] LABS: MD NO
[2020-11-21 06:02] LABS: ANION GAP 4 mmol/L (5-15); CALCIUM 9.6 mg/dL (8.5-10.1); CHLORIDE 108 mmol/L (98-107); CREATININE 0.91 mg/dL (0.7-1.3)
[2020-11-21] MEDS: CALCIUM CARBONATE 500 MG TAB.CHEW PO PRN ×5 (07:53→22:19)
[2020-11-21] MEDS: MULTIVITAMINS/MINERALS TABLET PO SCH (08:23)
[2020-11-21] MEDS: PANTOPRAZOLE 40MG TABLET PO SCH (08:23)
[2020-11-21] MEDS ORDERED: DIAZEPAM 5 MG TABLET PO SCH (08:30)
[2020-11-21] MEDS: MAGNESIUM SULFATE IV SCH (09:47)
[2020-11-21] MEDS: POTASSIUM CHLORIDE IV SCH (09:47)
[2020-11-21] MEDS: THIAMINE IV SCH (09:47)
[2020-11-21] MEDS: [UNRECOGNIZED DRUG - OTHER] IV SCH (09:47)
[2020-11-21 11:56] VITALS: BP 165/99
[2020-11-21 19:20] VITALS: BP 151/89
[2020-11-21] MEDS: CHLORDIAZEPOXIDE 25 MG CAPSULE PO PRN (22:21)
[2020-11-22 01:30] VITALS: BP 140/96
[2020-11-22] MEDS: NS + 40MEQ KCL 1,000 ML IV SCH (02:37)
[2020-11-22 06:09] LABS: BASOPHILS % (AUTO) 1 % (0-1); EOSINOPHILS % (AUTO) 7 % (1-7); LYMPHOCYTES % (AUTO) 35 % (22-44); MEAN CORPUSCULAR HEMOGLOBIN 34.6 pg (27.5-34.5); MEAN CORPUSCULAR HGB CONC 34.5 g/dL (33.2-36.2); MEAN PLATELET VOLUME 8.3 fL (7.4-10.4); MONOCYTES % (AUTO) 9 % (2-9); NEUTROPHILS % (AUTO) 48 % (42-75); PLATELET COUNT 171 x10^3/uL (130-400); RED BLOOD COUNT 3.43 x10^6/uL (4.38-5.82); RED CELL DISTRIBUTION WIDTH 15.8 % (9.4-14.8)
[2020-11-22 06:16] LABS: ANION GAP 8 mmol/L (5-15); CALCIUM 8.7 mg/dL (8.5-10.1); CHLORIDE 110 mmol/L (98-107); CREATININE 0.83 mg/dL (0.7-1.3)
[2020-11-22 06:29] LABS: MD NO
[2020-11-22 06:51] VITALS: BP 142/85
[2020-11-22] MEDS: PANTOPRAZOLE 40MG TABLET PO SCH (09:38)
[2020-11-22] MEDS: MULTIVITAMINS/MINERALS TABLET PO SCH (09:38)
[2020-11-22] MEDS: CHLORDIAZEPOXIDE 10 MG CAPSULE PO PRN (09:39)
[2020-11-22] MEDS: CALCIUM CARBONATE 500 MG TAB.CHEW PO PRN (09:39)
[2020-11-22] MEDS: MAGNESIUM SULFATE IV SCH (10:02)
[2020-11-22] MEDS: POTASSIUM CHLORIDE IV SCH (10:02)
[2020-11-22] MEDS: [UNRECOGNIZED DRUG - OTHER] IV SCH (10:02)
[2020-11-22] MEDS: THIAMINE IV SCH (10:02)
[2020-11-22 13:41] VITALS: BP 133/88
[2020-11-22] MEDS ORDERED: PANT40TA6 PO (14:48)
[2020-11-22] MEDS ORDERED: FLU VACC QS2020-21(6MOS UP)/PF 60MCG/0.5 ML SYR IM-VACC ONE (16:30)
[2020-11-23] MEDS ORDERED: MAGN400T26 PO (16:38)
== END 2020-11-22 18:30 | disposition home or self-care (01) | DRG 369 ==
LOC: ED 21:47 → EDIP 23:38 → 4EST 11-18 01:18
PROVIDERS: ADMIT Internal Medicine; ATTEND Hospitalist
DX: K22.6 Gastro-esophageal laceration-hemorrhage syndrome (principal); E87.3 Alkalosis; E83.42 Hypomagnesemia; E83.52 Hypercalcemia; E87.6 Hypokalemia; E87.8 Other disorders of electrolyte and fluid balance, not elsewhere classified; F03.90 Unspecified dementia, unspecified severity, without behavioral disturbance, psychotic disturbance, mood disturbance, and anxiety; F17.210 Nicotine dependence, cigarettes, uncomplicated; F10.10 Alcohol abuse, uncomplicated; K21.9 Gastro-esophageal reflux disease without esophagitis; E86.0 Dehydration; R74.01 Elevation of levels of liver transaminase levels; D75.89 Other specified diseases of blood and blood-forming organs; E83.39 Other disorders of phosphorus metabolism; I25.2 Old myocardial infarction; Z79.899 Other long term (current) drug therapy; Z87.11 Personal history of peptic ulcer disease
CPT/HCPCS: 36415; 71045; 80048; 80053; 80069; 82330; 83690; 83735; 83970; 84100; 84484; 85014; 85018; 85025; 86850; 86900; 90686; 93005; 99285; G0378; J2405; J3360; J3411; J3475; J3480; Q0162; J7030; J7040

== ENCOUNTER 2021-05-28 18:00 | Inpatient (IN) | payer OTHER ==
[~2021-05-28] VITALS: Ht 180.3 cm; Wt 63.8 kg
[~2021-05-28 18:00] MED LIST changes: +MAGN400T26 PO; +PANT40TA6 PO; +POTA-143 PO; -POTA20TA6 PO
--- NOTE | 2021-05-28 18:08 | NUR ---
biba for ETOH intoxication. per ems, pt has GLF 2 days ago and now c/o left sided rib pain. no other trauma noted. pt neuro intact, resps even and unlabored, vss. ermd Law at bedside for eval
[2021-05-28] MEDS ORDERED: FENTANYL PF 100 MCG/2ML IVPush ONE (18:30)
[2021-05-28] MEDS ORDERED: FENTANYL PF 100 MCG/2ML ONE ×2 (18:46→18:55)
--- NOTE | 2021-05-28 18:48 | NUR ---
ASSUMED CARE OF PATIENT. SETTING UP FOR CHEST TUBE PER DR VERMA.
[2021-05-28] MEDS ORDERED: LIDOCAINE-MPF 1%, 5ML ONE (18:54)
[2021-05-28 18:55] LABS: BASOPHILS % (AUTO) 1 % (0-1); EOSINOPHILS % (AUTO) 3 % (1-7); LYMPHOCYTES % (AUTO) 46 % (22-44); MEAN CORPUSCULAR HEMOGLOBIN 35.8 pg (27.5-34.5); MEAN CORPUSCULAR HGB CONC 34.9 g/dL (33.2-36.2); MONOCYTES % (AUTO) 7 % (2-9); NEUTROPHILS % (AUTO) 42 % (42-75); PLATELET COUNT 262 x10^3/uL (130-400); RED BLOOD COUNT 4.93 x10^6/uL (4.38-5.82); RED CELL DISTRIBUTION WIDTH 17.2 % (9.4-14.8)
--- NOTE | 2021-05-28 18:57 | NUR ---
DR VERMA IN ROOM.
--- NOTE | 2021-05-28 19:05 | NUR ---
EMERGENT CHEST TUBE NEEDED. VERBAL CONSENT GIVEN TO DR VERMA FROM PATIENT.
[2021-05-28 19:07] LABS: INTERNATIONAL NORMALIZED RATIO 0.94 (0.93-1.1); PROTHROMBIN TIME 10.1 Seconds (9.6-11.5)
[2021-05-28 19:08] LABS: ALANINE AMINOTRANSFERASE 37 U/L (12-78); ALBUMIN 3.3 g/dL (3.4-5.0); ANION GAP 14 mmol/L (5-15); CALCIUM 9.6 mg/dL (8.5-10.1); CHLORIDE 107 mmol/L (98-107); CREATININE 0.57 mg/dL (0.7-1.3)
[2021-05-28 19:10] LABS: ALKALINE PHOSPHATASE 164 U/L (45-117); BILIRUBIN,TOTAL 0.7 mg/dL (0.2-1.0); TOTAL PROTEIN 7.9 g/dL (6.4-8.2)
--- NOTE | 2021-05-28 19:34 | NUR ---
CHEST TUBE DONE. STERILE PROCEDURE FOLLOWED BY DR VERMA. XRAY DONE. PT TOLERATED WELL. VS STABLE. WILL CONTINUE TO MONITOR.
[2021-05-28] MEDS ORDERED: POTASSIUM CHLORIDE 20 MEQ TAB.ER.PRT PO ONE (21:00)
[2021-05-28] MEDS ORDERED: ACETAMINOPHEN 325 MG TABLET PO PRN (21:00)
[2021-05-28] MEDS ORDERED: morphine SULFATE 10 MG/ML, 1ML IVPush PRN (21:00)
[2021-05-28] MEDS ORDERED: THIAMINE 200 MG in SODIUM CHLORIDE 0.9% 50 ML IV ONE (21:00)
--- NOTE | 2021-05-28 21:03 | NUR ---
REPORT CALLED INTO [facility]. PT SEEN BY DR SYLVESTER.
[2021-05-28 21:40] VITALS: BP 138/97
[2021-05-28] MEDS: HYDROcodone/APAP 5/325 TABLET PO PRN (23:30)
[2021-05-28] MEDS: ENOXAPARIN 40 MG/0.4 ML SQ SCH (23:30)
[2021-05-29 02:46] VITALS: BP 144/101
[2021-05-29] MEDS: HYDROcodone/APAP 5/325 TABLET PO PRN ×2 (03:04→08:55)
[2021-05-29] MEDS ORDERED: SODIUM CHLORIDE 0.9% 1,000ML IVBOLUS ONE (05:30)
[2021-05-29 06:07] LABS: ANION GAP 9 mmol/L (5-15); CALCIUM 8.6 mg/dL (8.5-10.1); CHLORIDE 103 mmol/L (98-107)
[2021-05-29 06:09] LABS: CREATININE 0.45 mg/dL (0.7-1.3)
[2021-05-29 07:54] VITALS: BP 159/98
[2021-05-29] MEDS: THIAMINE 100MG TABLET PO/NG SCH (08:53)
[2021-05-29] MEDS ORDERED: LORazepam 1MG TABLET PO PRN ×3 (12:30)
[2021-05-29] MEDS ORDERED: DIAZEPAM 10 MG TABLET PO SCH (12:30)
[2021-05-29] MEDS ORDERED: LORazepam 2 MG/ML, 1ML IV PRN ×4 (12:30)
[2021-05-29] MEDS: DIAZEPAM 10 MG TABLET PO SCH ×2 (12:30→19:34)
[2021-05-29] MEDS ORDERED: PROMETHAZINE 25 MG/ML, 1ML IM PRN (12:30)
[2021-05-29] MEDS ORDERED: DIAZEPAM 5 MG TABLET ONE ×2 (13:16→18:54)
[2021-05-29] MEDS: CALCIUM CARBONATE 500 MG TAB.CHEW PO SCH ×2 (13:18→21:00)
[2021-05-29 14:11] VITALS: BP 149/103
[2021-05-29] MEDS ORDERED: SODIUM CHLORIDE 0.9%, 500ML IVBOLUS ONE (19:30)
[2021-05-29] MEDS: LABETALOL 5MG/ML, 20ML IVPush PRN (19:33)
[2021-05-29 20:08] VITALS: BP 153/102
[2021-05-29] MEDS: ENOXAPARIN 40 MG/0.4 ML SQ SCH (21:47)
[2021-05-30] MEDS: DIAZEPAM 10 MG TABLET PO SCH ×6 (01:20→21:03)
[2021-05-30 02:05] VITALS: BP 146/96
[2021-05-30 07:15] VITALS: BP 147/87
[2021-05-30] MEDS: NICOTINE 21 MG/24 HR PATCH.TD24 TD SCH (07:54)
[2021-05-30] MEDS: CALCIUM CARBONATE 500 MG TAB.CHEW PO SCH ×2 (09:00→21:02)
[2021-05-30] MEDS: LORazepam 2 MG/ML, 1ML IV PRN ×3 (09:32→12:25)
[2021-05-30] MEDS: THIAMINE 100MG TABLET PO/NG SCH (09:32)
[2021-05-30] MEDS ORDERED: DIAZEPAM 5 MG TABLET ONE ×2 (10:33→21:00)
[2021-05-30 13:07] VITALS: BP 106/83
[2021-05-30 14:30] VITALS: BP 152/100
--- NOTE | 2021-05-30 18:03 | NUR ---
FRED LEÓN E - Fall Risk Medication(s) present and receiving anticoagulants.
[2021-05-30 18:45] VITALS: BP 150/97
[2021-05-30] MEDS: ONDANSETRON 2MG/ML, 2ML IVPush PRN (21:03)
[2021-05-30] MEDS: ENOXAPARIN 40 MG/0.4 ML SQ SCH (21:03)
[2021-05-31 01:32] VITALS: BP 156/108
[2021-05-31 01:48] VITALS: BP 148/96
[2021-05-31] MEDS: DIAZEPAM 10 MG TABLET PO SCH (03:00)
[2021-05-31] MEDS: LORazepam 2 MG/ML, 1ML IV PRN ×3 (05:26→22:24)
[2021-05-31 07:26] VITALS: BP 133/89
[2021-05-31] MEDS: THIAMINE 100MG TABLET PO/NG SCH (09:00)
[2021-05-31] MEDS: CALCIUM CARBONATE 500 MG TAB.CHEW PO SCH (09:00)
[2021-05-31] MEDS: NICOTINE 21 MG/24 HR PATCH.TD24 TD SCH ×2 (09:00→20:14)
[2021-05-31 12:18] VITALS: BP 147/91
[2021-05-31] MEDS: ENOXAPARIN 40 MG/0.4 ML SQ SCH (20:13)
[2021-05-31 20:42] VITALS: BP 146/92
[2021-06-01] MEDS: LORazepam 2 MG/ML, 1ML IV PRN ×2 (00:49→19:51)
[2021-06-01 01:30] VITALS: BP 136/95
[2021-06-01 07:11] VITALS: BP 156/103
[2021-06-01] MEDS: CALCIUM CARBONATE 500 MG TAB.CHEW PO SCH ×2 (08:54→20:27)
[2021-06-01] MEDS: THIAMINE 100MG TABLET PO/NG SCH (08:54)
[2021-06-01 10:16] VITALS: BP 146/110
[2021-06-01] MEDS: LABETALOL 5MG/ML, 20ML IVPush PRN ×2 (10:19→20:27)
[2021-06-01 13:39] VITALS: BP 154/91
[2021-06-01 20:10] VITALS: BP 152/108
[2021-06-01] MEDS: ENOXAPARIN 40 MG/0.4 ML SQ SCH (20:27)
[2021-06-02 00:25] VITALS: BP 149/96
[2021-06-02] MEDS: LORazepam 2 MG/ML, 1ML IV PRN (01:24)
[2021-06-02 06:08] LABS: CREATININE 0.57 mg/dL (0.7-1.3)
[2021-06-02 07:47] VITALS: BP 162/97
[2021-06-02] MEDS: NICOTINE 21 MG/24 HR PATCH.TD24 TD SCH ×2 (08:26→09:06)
[2021-06-02 08:30] VITALS: BP 154/98
[2021-06-02] MEDS: CALCIUM CARBONATE 500 MG TAB.CHEW PO SCH ×2 (08:56→19:53)
[2021-06-02] MEDS: LORazepam 0.5MG TABLET PO PRN ×2 (08:56→13:36)
[2021-06-02] MEDS: THIAMINE 100MG TABLET PO/NG SCH (08:56)
[2021-06-02] MEDS ORDERED: BISACODYL 10 MG SUPP PR PRN (14:30)
[2021-06-02] MEDS ORDERED: DOCUSATE 50 MG/5 ML, 10ML UDC PO PRN (14:30)
[2021-06-02] MEDS: POLYETHYLENE GLYCOL 17 GM PACKET PO ONE ×2 (14:30→18:10)
[2021-06-02 14:57] VITALS: BP 157/103
[2021-06-02] MEDS ORDERED: DOCUSATE 100 MG CAPSULE PO PRN (15:30)
[2021-06-02 19:35] VITALS: BP 167/101
[2021-06-02] MEDS: HYDROcodone/APAP 5/325 TABLET PO PRN ×2 (19:38→20:09)
[2021-06-02] MEDS: ENOXAPARIN 40 MG/0.4 ML SQ SCH (19:54)
[2021-06-02] MEDS: LABETALOL 5MG/ML, 20ML IVPush PRN (19:54)
[2021-06-02] MEDS: ONDANSETRON 2MG/ML, 2ML IVPush PRN (20:15)
[2021-06-03 02:04] VITALS: BP 131/87
[2021-06-03 08:42] VITALS: BP 142/89
[2021-06-03] MEDS: NICOTINE 21 MG/24 HR PATCH.TD24 TD SCH (09:26)
[2021-06-03] MEDS: THIAMINE 100MG TABLET PO/NG SCH (09:27)
[2021-06-03] MEDS: CALCIUM CARBONATE 500 MG TAB.CHEW PO SCH ×2 (09:27→22:40)
[2021-06-03] MEDS: LORazepam 0.5MG TABLET PO PRN ×3 (09:27→19:49)
[2021-06-03 12:57] VITALS: BP 132/88
[2021-06-03] MEDS: HYDROcodone/APAP 5/325 TABLET PO PRN (13:00)
[2021-06-03] MEDS: ONDANSETRON 2MG/ML, 2ML IVPush PRN ×2 (13:06→19:49)
[2021-06-03] MEDS: LORazepam 2 MG/ML, 1ML IV PRN (20:01)
[2021-06-03 21:17] VITALS: BP 146/95
[2021-06-03] MEDS: ENOXAPARIN 40 MG/0.4 ML SQ SCH (22:40)
[2021-06-04 04:54] VITALS: BP 128/84
[2021-06-04 08:23] VITALS: BP 125/83
[2021-06-04] MEDS: NICOTINE 21 MG/24 HR PATCH.TD24 TD SCH (09:56)
[2021-06-04] MEDS: THIAMINE 100MG TABLET PO/NG SCH (09:57)
[2021-06-04] MEDS: CALCIUM CARBONATE 500 MG TAB.CHEW PO SCH ×2 (09:57→20:54)
[2021-06-04 13:17] VITALS: BP 128/86
[2021-06-04] MEDS ORDERED: CHLORDIAZEPOXIDE 25 MG CAPSULE PO PRN (17:00)
[2021-06-04] MEDS: HYDROcodone/APAP 5/325 TABLET PO PRN (18:37)
[2021-06-04 19:52] VITALS: BP 115/74
[2021-06-04] MEDS: ENOXAPARIN 40 MG/0.4 ML SQ SCH (20:55)
[2021-06-04] MEDS: LORazepam 1MG TABLET PO PRN (23:24)
[2021-06-05] MEDS ORDERED: HALOPERIDOL 5 MG/ML IM PRN (01:30)
[2021-06-05] MEDS: QUETIAPINE 25MG TABLET PO PRN ×2 (01:46→16:47)
[2021-06-05 01:48] VITALS: BP 151/90
[2021-06-05 06:15] LABS: CREATININE 0.62 mg/dL (0.7-1.3)
[2021-06-05] MEDS: LORazepam 1MG TABLET PO PRN ×2 (08:30→08:37)
[2021-06-05] MEDS: CALCIUM CARBONATE 500 MG TAB.CHEW PO SCH ×2 (08:37→21:06)
[2021-06-05] MEDS: NICOTINE 21 MG/24 HR PATCH.TD24 TD SCH (08:38)
[2021-06-05] MEDS: THIAMINE 100MG TABLET PO/NG SCH (08:38)
[2021-06-05 09:04] VITALS: BP 146/85
[2021-06-05 13:15] VITALS: BP 135/82
[2021-06-05] MEDS: HYDROcodone/APAP 5/325 TABLET PO PRN (16:47)
[2021-06-05 20:59] VITALS: BP 143/89
[2021-06-05] MEDS: ENOXAPARIN 40 MG/0.4 ML SQ SCH (21:06)
[2021-06-06] MEDS ORDERED: QUETIAPINE 100MG TABLET ONE (01:18)
[2021-06-06] MEDS: QUETIAPINE 25MG TABLET PO PRN (01:21)
[2021-06-06] MEDS: HYDROcodone/APAP 5/325 TABLET PO PRN (01:21)
[2021-06-06 02:14] VITALS: BP 116/73
[2021-06-06] MEDS: LORazepam 1MG TABLET PO PRN (04:26)
[2021-06-06] MEDS: CALCIUM CARBONATE 500 MG TAB.CHEW PO SCH (09:39)
[2021-06-06] MEDS: NICOTINE 21 MG/24 HR PATCH.TD24 TD SCH (09:40)
[2021-06-06] MEDS: THIAMINE 100MG TABLET PO/NG SCH (09:40)
== END 2021-06-06 10:25 | DRG 200 ==
LOC: ED 18:10 → EDIP 20:01 → 4NE 20:50
PROVIDERS: ADMIT Emergency Medicine; ATTEND Hospitalist
PROC: 0W9B30Z Drainage of Left Pleural Cavity with Drainage Device, Percutaneous Approach (ICD-10-PCS; principal; 2021-05-28)
DX: S27.0XXA Traumatic pneumothorax, initial encounter (principal); S22.42XA Multiple fractures of ribs, left side, initial encounter for closed fracture; J98.11 Atelectasis; E87.6 Hypokalemia; F10.229 Alcohol dependence with intoxication, unspecified; F17.200 Nicotine dependence, unspecified, uncomplicated; W06.XXXA Fall from bed, initial encounter; K21.9 Gastro-esophageal reflux disease without esophagitis; I25.2 Old myocardial infarction; Z87.11 Personal history of peptic ulcer disease; Y93.89 Activity, other specified; Y92.89 Other specified places as the place of occurrence of the external cause; Y99.8 Other external cause status
CPT/HCPCS: 36415; 71045; 80048; 80053; 80320; 82565; 85025; 85610; 85730; 96374; 99285; G0378; J1650; J2405; J2550; J3010; J3411; G0480; J1630; J2060; J7030; J7040